=== PATIENT | female | born 1950 | race Caucasian/White ===

== ENCOUNTER 2016-06-08 05:48 | Emergency (ER) | payer MEDICAID ==
[2016-06-08 05:54] VITALS: PULSE 75; RESP 18; TEMP 98.2
[2016-06-08] MEDS ORDERED: predniSONE 50 MG TAB PO STA (06:03)
[2016-06-08] MEDS ORDERED: KETOROLAC 60 MG/2 ML VIAL IM STA (06:03)
--- NOTE | 2016-06-08 06:10 | ED ---
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 Patient also has pain over the anterior aspect of her wrist over the median nerve. Patient denies any injury to the wrist or hand. Patient has not noticed any redness to the area. Patient states she's been or abrasions. Patient thinks her fingers seem a little swollen or at least they feel swollen because they feel tingly. Patient states she does do a lot of repetitive work but nothing out of the ordinary. - Related Data Home Medications Medication Instructions Recorded Confirmed Bisoprolol Fumarate [Bisoprolol 06/08/16 Fumarate] Zolpidem [Ambien] 10 mg PO HS PRN 06/08/16 06/08/16 Previous Rx's Medication Instructions Recorded predniSONE 40 mg PO DAILY #8 tab 06/08/16 Allergies Allergy/AdvReac Type Severity Reaction Status Date / Time No Known Allergies Allergy Verified 06/08/16 05:54 Review of Systems ROS Statement: Those systems with pertinent positive or pertinent negative responses have been documented in the HPI. ROS Other: All systems not noted in ROS Statement are negative. Past Medical History Past Medical History: No Reported History History of Any Multi-Drug Resistant Organisms: None Reported Past Surgical History: Orthopedic Surgery Past Psychological History: No Psychological Hx Reported Smoking Status: Current every day smoker Past Alcohol Use History: Rare Past Drug Use History: None Reported General Exam - General Exam Comments Initial Comments: GENERAL Patient is well-developed and well-nourished. Patient is in mild distress. EYES Patient's pupils are equal and round. Extraocular motion is intact SKIN Unremarkable NEURO The patient is alert and oriented 3 PYSCH Patient has normal interpersonal interactions. MUSCULOSKELETAL Flexing the fingers causes her some discomfort in the palm and wrist area. Tapping over the anterior wrist causes significant pain. Patient still has sensation intact. No erythema is noted no wounds are noted and no swelling is noted Limitations: no limitations Course Vital Signs 03/11/17 05:51 Temperature 98.2 F Pulse Rate 75 Respiratory 18 Rate O2 Sat by Pulse 97 Oximetry Disposition Clinical Impression: Carpal tunnel syndrome Disposition: HOME SELF-CARE Condition: Good Additional Instructions: Patient should follow-up with orthopedics if the symptoms persist. If symptoms change or worsen she should come back to the emergency department. Once the prednisone is gone patient should use Motrin when necessary for symptoms. Patient should also by wrist brace to mobilize the hand. Prescriptions: predniSONE 40 mg PO DAILY #8 tab Referrals: Cirilo Lehman MD [Primary Care Provider] - 1-2 days Time of Disposition: 06:08
== END 2016-06-08 06:17 | disposition home or self-care (01) ==
LOC: EC 05:48
DX: G56.02 Carpal tunnel syndrome, left upper limb (principal); F17.200 Nicotine dependence, unspecified, uncomplicated; Z79.899 Other long term (current) drug therapy
CPT/HCPCS: 99283; 96372; J1885; J7512

== ENCOUNTER → 2016-08-07 | Outpatient (CLI) | payer MEDICAID ==
--- NOTE | 2016-08-07 16:01 | XR ---
EXAMINATION TYPE: XR shoulder complete BILAT DATE OF EXAM: 08/07/2016 3:46 PM COMPARISON: NONE HISTORY: 65-year-old male bilateral shoulder pain TECHNIQUE: 3 views each side FINDINGS: The bilateral AC joints are symmetric and intact. There is degenerative spurring along the inferior humeral head on both sides compatible with underlyi ng osteoarthrosis, left greater than right. There may be subtle calcification along the superior humeral head articular surface measuring 5 mm on the left. This could represent some calcification along the articular cartilage. No acute fracture o r dislocation. IMPRESSION: 1. Left greater than right glenohumeral joint osteoarthrosis. 2. Suspect subtle calcification along the superior articular surface of the left humeral head. Findin gs can be seen in the setting of CPPD and subclinical gout. Clinically correlate. 3. No acute osseous abnormality seen.
--- NOTE | 2016-08-07 16:15 | XR ---
EXAMINATION TYPE: XR wrist complete BILATERAL DATE OF EXAM: 08/07/2016 3:46 PM COMPARISON: NONE HISTORY: 65 year-old female bilateral wrist pain TECHNIQUE: 4 views each side FINDINGS: There is some soft tissue swelling overlying the bilateral ulnar styloid processes. There appears to be widening at the right scapholunate interval. Borderline increase in distance of t he right scapholunate interval at 2 mm. There is mild to moderate osteoarthritic change at the bilateral first CMC and triscaphe joints. No acute fracture, subluxation, or dislocation. IMPRESSION: 1. Some soft tissue swelling overlying the ulnar styloid processes on both sides could reflect ECU te ndinopathy or injury to the underlying TFCC or the ECU subsheath. 2. Osteoarthritic changes at the base of the thumbs. 3. Findings suggest age indeterminate scapholunate lunate ligament injury on the right. The scapholun ate interval on the left is borderline widened.
== END | disposition home or self-care (01) ==
LOC: RADXRMAIN 15:17
PROVIDERS: ATTEND Nurse Practitioner
DX: M19.012 Primary osteoarthritis, left shoulder (principal); M19.011 Primary osteoarthritis, right shoulder; M18.0 Bilateral primary osteoarthritis of first carpometacarpal joints; M79.89 Other specified soft tissue disorders

== ENCOUNTER 2016-10-25 08:23 | Emergency (ER) | payer MEDICAID, MEDICARE ==
[2016-10-25 08:28] VITALS: TEMP 97.9
[2016-10-25] MEDS ORDERED: HYDROcodone/APAP 5-325MG 1 EACH TAB PO STA (09:12)
--- NOTE | 2016-10-25 09:16 | ED ---
General Adult HPI - General Chief complaint: Extremity Problem,Nontraumatic Stated complaint: Lower Body Pain Time Seen by Provider: 10/25/16 08:40 Source: patient, RN notes reviewed Mode of arrival: wheelchair Limitations: no limitations - History of Present Illness Initial comments: Patient's a 66-year-old female who presents emergency room today with chief complaint of increased joint pain. She does admit that she's been experiencing joint pain over the last 3 months and the family doctor for this. States recently started on Celebrex is 2 days ago. States that the pain has increased since starting this medication. Patient does admit that it is in her joints. She states from her feet all the way up to her neck. States worse with movements. Denies any other complaints or symptoms. States she's been also using Tylenol extra strength with little relief. Patient denies any recent fever , chills, shortness of breath, chest pain, back pain, abdominal pain, nausea or vomiting, numbness or tingling, dysuria or hematuria, constipation or diarrhea, headaches or visual changes, or any other complaints. - Related Data Home Medications Medication Instructions Recorded Confirmed Zolpidem [Ambien] 10 mg PO HS PRN 06/08/16 06/08/16 Bisoprolol-Hctz 10-6.25 mg [Ziac 1 tab PO DAILY 10/25/16 10/25/16 10-6.25] Celecoxib [CeleBREX] 200 mg PO DAILY 10/25/16 10/25/16 Previous Rx's Medication Instructions Recorded Hydrocodone/Acetaminophen [[place] 1 each PO Q6HR PRN #20 tab 10/25/16 5-325] Naproxen [Naprosyn] 250 mg PO BID #30 tab 10/25/16 Allergies Allergy/AdvReac Type Severity Reaction Status Date / Time No Known Allergies Allergy Verified 10/25/16 09:11 Review of Systems ROS Statement: Those systems with pertinent positive or pertinent negative responses have been documented in the HPI. ROS Other: All systems not noted in ROS Statement are negative. Past Medical History Past Medical History: No Reported History History of Any Multi-Drug Resistant Organisms: None Reported Past Surgical History: Orthopedic Surgery Past Psychological History: No Psychological Hx Reported Smoking Status: Current every day smoker Past Alcohol Use History: Rare Past Drug Use History: None Reported General Exam - General Exam Comments Initial Comments: General: The patient is awake and alert, in no distress, and does not appear acutely ill. Eye: Pupils are equal, round and reactive to light, extra-ocular movements are intact. No nystagmus. There is normal conjunctiva bilaterally. No signs of icterus. Ears, nose, mouth and throat: There are moist mucous membranes and no oral lesions. Neck: The neck is supple, there is no tenderness or JVD. Cardiovascular: There is a regular rate and rhythm. No murmur, rub or gallop is appreciated. Respiratory: Lungs are clear to auscultation, respirations are non-labored, breath sounds are equal. No wheezes, stridor, rales, or rhonchi. Musculoskeletal: Normal ROM, no tenderness. Strength 5/5. Sensation intact. Pulses equal bilaterally 2+. Neurological: A&O x 3. CN II-XII intact, There are no obvious motor or sensory deficits. Coordination appears grossly intact. Speech is normal. Skin: Skin is warm and dry and no rashes or lesions are noted. Psychiatric: Cooperative, appropriate mood & affect, normal judgment. Limitations: no limitations Course Vital Signs 10/25/16 08:26 Temperature 97.9 F Pulse Rate 115 H Respiratory 18 Rate Blood Pressure 143/72 O2 Sat by Pulse 97 Oximetry Medical Decision Making - Medical Decision Making Celebrex medication reviewed and does show 7% chance of arthralgia. Was discussed patient that this may be because of increased right pain over the last 2 days. Advised patient to hold this medication. Will be provided a prescription for naproxen. Also given a short [place] for pain. Advised return to the family doctor return here to the emergency room symptoms increase or worsen or for any other concerns. Disposition Clinical Impression: Arthralgia Disposition: HOME SELF-CARE Condition: Good Instructions: Arthralgia (ED) Additional Instructions: Please use medication as discussed. Please follow-up with family doctor in the next 2 days of symptoms have not improved. Please return to emergency room if the symptoms increase or worsen or for any other concerns. Prescriptions: Hydrocodone/Acetaminophen [[place] 5-325] 1 each PO Q6HR PRN #20 tab PRN Reason: Pain Naproxen [Naprosyn] 250 mg PO BID #30 tab Referrals: Idris Zimmerman MD [Primary Care Provider] - 1-2 days Time of Disposition: 09:14
[2016-10-25 09:41] VITALS: BP 138/76; PULSE 92; RESP 17
== END 2016-10-25 09:40 | disposition home or self-care (01) ==
LOC: EC 08:23
DX: M25.571 Pain in right ankle and joints of right foot (principal); M25.572 Pain in left ankle and joints of left foot; M54.2 Cervicalgia; M25.50 Pain in unspecified joint; F17.200 Nicotine dependence, unspecified, uncomplicated; Z79.1 Long term (current) use of non-steroidal anti-inflammatories (NSAID); Z79.899 Other long term (current) drug therapy
CPT/HCPCS: 99283

== ENCOUNTER → 2017-10-20 | Outpatient (CLI) | payer MEDICARE ==
[2017-10-20 14:18] LABS: Basophils % (A) 0 %; Eosinophils # (A) 0.1 k/uL (0-0.7); Eosinophils % (A) 1 %; HCT 42.3 % (34.0-46.0); HGB 13.9 gm/dL (11.4-16.0); Lymphocytes # (A) 1.9 k/uL (1.0-4.8); Lymphocytes % (A) 24 %; MCH 30.9 pg (25.0-35.0); MCHC 32.8 g/dL (31.0-37.0); MCV 94.3 fL (80.0-100.0); Monocytes # (A) 0.3 k/uL (0-1.0); Monocytes % (A) 4 %; Neutrophils # (A) 5.5 k/uL (1.3-7.7); Neutrophils % (A) 70 %; Platelet Count 361 k/uL (150-450); RBC 4.49 m/uL (3.80-5.40); RDW 13.8 % (11.5-15.5); WBC 7.9 k/uL (3.8-10.6)
[2017-10-20 14:33] LABS: ALT 31 U/L (9-52); AST 18 U/L (14-36); Albumin 4.4 g/dL (3.5-5.0); Alkaline Phosphatase 86 U/L (38-126); Anion Gap 8 mmol/L; Blood Urea Nitrogen 14 mg/dL (7-17); Calcium 9.8 mg/dL (8.4-10.2); Carbon Dioxide 23 mmol/L (22-30); Chloride 110 mmol/L (98-107); Cholesterol 246 mg/dL (<200); Glucose 91 mg/dL (74-99); HDL Cholesterol 61 mg/dL (40-60); LDL Cholesterol,Calculated 143 mg/dL (0-99); Potassium 4.4 mmol/L (3.5-5.1); Sodium 141 mmol/L (137-145); Total Bilirubin 0.6 mg/dL (0.2-1.3); Total Protein 7.3 g/dL (6.3-8.2); Triglycerides 209 mg/dL (<150)
== END | disposition home or self-care (01) ==
LOC: LABWHC1 13:19
PROVIDERS: ATTEND Family Medicine
DX: Z00.00 Encounter for general adult medical examination without abnormal findings (principal); E55.9 Vitamin D deficiency, unspecified
CPT/HCPCS: 36415; 80053; 80061; 82306; 84443; 85025

== ENCOUNTER 2018-01-08 10:40 | Day surgery (SDC) | payer MEDICARE ==
[2018-01-05 15:27] VITALS: BMI 30.1
[~2018-01-08 10:40] MED LIST: LACTATED RINGERS 1,000 ML IV SCH
[2018-01-08 11:17] VITALS: RESP 18; TEMP 98.2
[2018-01-08] MEDS ORDERED: PROPOFOL 10 MG/ML 20 ML VIAL IV ONE (11:29)
[2018-01-08] MEDS ORDERED: LIDOCAINE 1% INJ 10MG/ML (20 ML MDV) ONE (11:29)
[2018-01-08] MEDS ORDERED: LIDOCAINE 1% 20 ML VIAL (10MG/ML) FOR IV START INTRADERMA ONE (11:29)
--- NOTE | 2018-01-08 11:52 | P.OP ---
Date of Procedure: 01/08/18 Preoperative Diagnosis: Positive Cologuard test Postoperative Diagnosis: Normal Colon Anesthesia: MAC Surgeon: Josef Milligan Pathology: none sent Condition: stable Disposition: same day Description of Procedure: Patient was brought to the Endo suite placed in the left lateral decubitus position underwent sedation per department of anesthesia she timeout performed correct patient correct procedure correct site was verified rectal exam was performed no abnormalities were noted the scope was passed to the rectum to the cecum with ease was then slowly withdrawn make sure to visualize all hayden of the colon on the way out. There is no abnormalities seen. Patient tolerated procedure well no apparent complications
[2018-01-08 12:13] VITALS: BP 115/78; PULSE 78
== END 2018-01-08 12:30 | disposition home or self-care (01) ==
LOC: ORWHC2ENDO 10:40
PROVIDERS: ATTEND Student in an Organized Health Care Education/Training Program
DX: R19.5 Other fecal abnormalities (principal); I10 Essential (primary) hypertension; M72.2 Plantar fascial fibromatosis; M06.9 Rheumatoid arthritis, unspecified; Z79.899 Other long term (current) drug therapy; F17.210 Nicotine dependence, cigarettes, uncomplicated
CPT/HCPCS: 45378; J2001; J2704

== ENCOUNTER → 2018-05-05 | Outpatient (CLI) | payer MEDICARE ==
--- NOTE | 2018-05-05 10:01 | XR ---
EXAMINATION TYPE: XR facial bones complete DATE OF EXAM: 05/05/2018 HISTORY: Pain trauma TECHNIQUE: Three views of the facial bones are submitted. FINDINGS: No evidence for displaced or depressed facial bone fracture. No air-fluid levels within th e sinuses. Soft tissues are radiographically intact. IMPRESSION: No evidence for displaced or depressed facial bone fracture.
== END | disposition home or self-care (01) ==
LOC: RADXRMAIN 09:05
PROVIDERS: ATTEND Family Medicine
DX: H93.8X1 Other specified disorders of right ear (principal)
CPT/HCPCS: 70150

== ENCOUNTER → 2018-05-19 | Outpatient (CLI) | payer MEDICARE ==
[2018-05-19 16:14] LABS: Blood Urea Nitrogen 13 mg/dL (7-17)
--- NOTE | 2018-05-20 09:36 | CT ---
"EXAMINATION TYPE: CT soft tissue neck w con DATE OF EXAM: 05/19/2018 COMPARISON: None HISTORY: right sided neck swelling CT DLP: 343 mGycm CONTRAST: Patient injected with 100 mL of Isovue 300. TECHNIQUE: Axial images at 3 mm thick sections. Reconstructed images in the coronal plane and sagitt al plane are reviewed. FINDINGS: Limited CT sections are obtained the lung apices. The lung apices appear clear. CT neck: The torus tubarius and fossa of Rosenmuller are normal. Extraction Machine Operator spaces are normal. Para nasal sinuses and mastoid air cells are clear. There is a 1.5 x 1.9 cm hyperdense area within the lateral anterior parotid gland may be a an abnorma l lymph node. This has some central lower density. Bilateral parotid glands otherwise appear unremarkable.. Submandibular glands, are normal. Paraphar yngeal spaces are normal. No suspicious adenopathy is evident. Couple small submental lymph nodes ar e present. Jugulodigastric lymph nodes are within normal limits for size. Shotty posterior triangle o f right. The hypopharynx appears within normal limits. Vocal cord level appear symmetrical. There is a small hypodensity within the right lobe thyroid measuring 0.4 cm. Subglottic airway appear s normal. There is a grade 1 spondylolisthesis of C4 anteriorly on C5. Vertebral body alignment is straightened . Some degenerative disc changes are present C6-7. Small amount of posterior vertebral body spurring is present at this level. IMPRESSIONS: 1. 1.5 x 1.9 cm hyperdense mass within the right parotid gland. Abnormal lymph node or mass should be considered. Additional workup is recommended. A Yellow level critical message alert has been initiated for Brandt Bray MD via the [employer] 36 0 | Critical Results System on 05/20/2018 9:33 AM. This message alert has been sent to Brandt Bray MD via the preferences provided by the clinician for the receipt of Radiology Critical Findings. [facility] ID [id number]."
== END ==
LOC: RADCTMAIN 15:30
PROVIDERS: ATTEND Otolaryngology
DX: K11.8 Other diseases of salivary glands (principal)
CPT/HCPCS: 82565; 84520; 70491; 36415; Q9967

== ENCOUNTER → 2018-06-08 | Outpatient (CLI) | payer MEDICARE ==
--- NOTE | 2018-06-08 11:27 | US ---
EXAMINATION TYPE: US thyroid st tissue head/neck DATE OF EXAM: 06/08/2018 COMPARISON: CT neck May 19, 2018 CLINICAL HISTORY: E04.1 Thyroid Nodule. Right thyroid nodule GLAND SIZE: Right Lobe: 4.7 x 1.9 x 1.7 cm Overall Parenchyma: homogenous Left Lobe: 4.3 x 1.8 x 1.7 cm Overall Parenchyma: homogeneous Isthmus Thickness: 0.4 cm NODULES RIGHT: # of nodules measured on right: 3 1. 0.5 X 0.5 x 0.6 cm mixed nodule at the upper pole with well-defined margins; . This nodule is w ider than tall and shows no intranodular vascularity. Prior size: no prior 2. 0.7 X 0.6 x 0.6 cm mixed nodule at the mid pole with poorly defined margins; . This nodule is wi lindsay than tall and shows intranodular vascularity. Prior size: no prior 3. 1.2 X 0.7 x 0.9 cm hypoechoic solid nodule at the lateral/lower pole with well-defined margins; T his nodule is taller than wideand shows intranodular vascularity. Prior size: no prior LEFT: # of nodules measured on left: 0 ISTHMUS: # of nodules measured in the isthmus: 0 Bilateral neck scanned, no evidence of lymphadenopathy. There is homogeneous normal size thyroid with few small scattered nodules. IMPRESSION: As above, dominant 1.2 cm left lateral nodule is total points 7 (hypoechoic 2, taller than wide 3, so lid 2) and is thus TR 5, ultrasound guided FNA is thus advised.
== END ==
LOC: RADUSWWP 10:51
PROVIDERS: ATTEND Otolaryngology
DX: E04.1 Nontoxic single thyroid nodule (principal)
CPT/HCPCS: 76536

== ENCOUNTER 2018-07-09 09:17 | Day surgery (SDC) | payer MEDICARE ==
[2018-07-09 09:46] VITALS: RESP 16; TEMP 98
[2018-07-09 11:32] VITALS: BP 168/81; PULSE 96
--- NOTE | 2018-07-09 14:53 | US ---
EXAMINATION TYPE: US FNA thyroid first lesion DATE OF EXAM: 07/09/2018 COMPARISON: Thyroid ultrasound 06/08/2017 HISTORY: Thyroid nodule, E04.1 Maximal barrier technique was utilized. Ultrasound using sterile technique. The skin overlying the ri ght-sided thyroid nodule was localized with ultrasound and the overlying skin prepped and draped. Lid ocaine used for local anesthesia. 5 passes with a 25-gauge needle were made into the nodule under ult rasound guidance. Aspirate specimen submitted to cytology. Following the procedure hemostasis achieve d. No immediate complication IMPRESSION: Status post ultrasound-guided fine-needle aspiration of thyroid nodule, pathology pending .
== END 2018-07-09 11:25 | disposition home or self-care (01) ==
LOC: RADPROMAIN 09:17
PROVIDERS: ATTEND Otolaryngology
DX: E04.1 Nontoxic single thyroid nodule (principal)
CPT/HCPCS: 10005; 88173; 88305

== ENCOUNTER → 2019-01-13 | Outpatient (CLI) | payer MEDICARE ==
--- NOTE | 2019-01-13 16:34 | US ---
EXAMINATION TYPE: US thyroid st tissue head/neck DATE OF EXAM: 01/13/2019 COMPARISON: NONE CLINICAL HISTORY: E04.1 THYROID NODULE. follow up on nodules, rt parotid swelling for years GLAND SIZE: Right Lobe: 4.6 x 1.3 x 2.2 cm Overall Parenchyma: heterogenous Left Lobe: 4.2 x 1.5 x 1.9 cm Overall Parenchyma: heterogeneous Isthmus Thickness: 0.6 cm NODULES RIGHT: # of nodules measured on right: 2 1. 0.8 X 0.8 x 0.5 cm cystic nodule at the lower pole with well-defined margins. This nodule is wi lindsay than tall and shows no intranodular vascularity. Prior size: 1.1 x 0.7 x 0.9 cm - previously biopsied 2. 0.7 X 0.7 x 0.7 cm hypoechoic solid nodule at the mid pole with well-defined margins. This nodul e is wider than tall and shows intranodular vascularity. Prior size: 0.7 x 0.6 x 0.6 cm LEFT: # of nodules measured on left: 0 ISTHMUS: # of nodules measured in the isthmus: 0 Bilateral neck scanned, no evidence of lymphadenopathy. Rt parotid palpable appears to be complex lesion with vascularity = 1.7cm IMPRESSION: 1. Subcentimeter nodules within the thyroid. 2. Parotid gland appears abnormal with vascular structure present. Recommend contrast CT of the neck for additional evaluation.
== END | disposition home or self-care (01) ==
LOC: RADUSWWP 12:11
PROVIDERS: ATTEND Otolaryngology
DX: E04.2 Nontoxic multinodular goiter (principal); K11.9 Disease of salivary gland, unspecified
CPT/HCPCS: 76536

== ENCOUNTER → 2019-10-22 | Outpatient (CLI) | payer MEDICARE ==
--- NOTE | 2019-10-22 12:24 | US ---
EXAMINATION TYPE: US thyroid st tissue head/neck DATE OF EXAM: 10/22/2019 COMPARISON: 01/13/2019 CLINICAL HISTORY: 69-year-old female E04.1 THYROID NODULE, K11.8 RT PAROTID NODULE. TECHNIQUE: Multiple sonographic images of the thyroid gland are obtained. FINDINGS: GLAND SIZE: Right Lobe: 4.1 x 1.6 x 1.6 cm Overall Parenchyma: homogenous Left Lobe: 5.4 x 1.5 x 1.7 cm Overall Parenchyma: homogeneous Isthmus Thickness: 0.3 cm NODULES RIGHT: # of nodules measured on right: 3 1. 0.9 X 0.7 x 0.8 cm benign cyst at the lower pole. Prior size: 0.8 x 0.5 x 0.8 cm 2. 0.7 X 0.6 x 0.6 cm isoechoic solid nodule at the posterior mid pole with well-defined margins; . This nodule is wider than tall and shows intranodular vascularity. Prior size: 0.7 x 0.6 x 0.7 cm 3. 0.6 X 0.4 x 0.4 cm colloid cyst at the upper pole. Prior size: not imaged LEFT: # of nodules measured on left: 2 1. 0.8 X 0.5 x 0.7 cm hypoechoic solid nodule at the lower pole with well-defined margins; . This nodule is wider than tall and shows intranodular vascularity. Prior size: not imaged 2. 0.5 X 0.3 x 0.6 cyst at the midpole. Prior size: not imaged ISTHMUS: # of nodules measured in the isthmus: 0 Bilateral neck scanned, no evidence of lymphadenopathy. Right parotid hypoechoic round solid nodule with internal flow measures 2.0 x 1.8 x 1.9 cm. IMPRESSION: 1. Multinodular thyroid gland. There is an 8 mm solid nodule not previously seen/evaluated on the lef t for which follow-up is recommended. The 7 mm solid nodule at the right midpole remains unchanged. 2. Circumscribed, round solid mass within the right parotid gland measures 2.0 cm. Salivary gland ronaldo plasm is in the differential. !"
== END | disposition home or self-care (01) ==
LOC: RADUSWWP 10:51
PROVIDERS: ATTEND Otolaryngology
DX: E04.2 Nontoxic multinodular goiter (principal); K11.8 Other diseases of salivary glands
CPT/HCPCS: 76536

== ENCOUNTER 2020-02-01 06:37 | Emergency (ER) | payer MEDICARE ==
[2020-02-01 06:47] VITALS: RESP 18; TEMP 98.1
[2020-02-01] MEDS ORDERED: SODIUM CHLORIDE 0.9% 1,000 ML IV STA (07:08)
[2020-02-01] MEDS ORDERED: KETOROLAC 15 MG/ML 1 ML VIAL IVP STA (07:09)
--- NOTE | 2020-02-01 07:15 | ED ---
Chest Pain HPI - General Chief Complaint: Chest Pain Stated Complaint: Lt Side Abdominal/Back Pain Time Seen by Provider: 02/01/20 07:01 Source: patient, RN notes reviewed, old records reviewed Mode of arrival: ambulatory Limitations: no limitations - History of Present Illness Initial Comments: 61-year-old female presents emergency department today for evaluation with complaints of left-sided rib discomfort with taking a deep breath for the past 2 days. She is a former smoker. She reports that she recently quit smoking and smoke approximately half pack a day. Patient states that she is having worsening pain with any certain movements and deep inspiration.. She reports she took Motrin today and did have improvement. Patient denies any cough, or hemoptysis. Patient denies any lower leg swelling. Patient has no fall or trauma. - Related Data Home Medications Medication Instructions Recorded Confirmed Zolpidem [Ambien] 10 mg PO HS 06/08/16 02/01/20 Albuterol Sulfate [Proair Hfa] 1 - 2 puff INHALATION Q6HR PRN 01/05/18 02/01/20 Folic Acid 1 mg PO DAILY 02/01/20 02/01/20 Ibuprofen [Motrin] 800 mg PO Q8H PRN 02/01/20 02/01/20 Irbesartan 300 mg PO DAILY 02/01/20 02/01/20 amLODIPine [Norvasc] 5 mg PO DAILY 02/01/20 02/01/20 metHOTREXate sodium [Methotrexate] 15 mg PO FR 02/01/20 02/01/20 Previous Rx's Medication Instructions Recorded Cyclobenzaprine [Flexeril] 5 mg PO TID #12 tablet 02/01/20 Allergies Allergy/AdvReac Type Severity Reaction Status Date / Time No Known Allergies Allergy Verified 02/01/20 08:27 Review of Systems ROS Statement: Those systems with pertinent positive or pertinent negative responses have been documented in the HPI. ROS Other: All systems not noted in ROS Statement are negative. EKG Findings - EKG Comments: EKG Findings:: EKG performed at 654 shows sinus rhythm nonspecific ST and normality. Abnormal EKG. Vegetarian of 82 bpm. Intervals 144 ms. QS ration is 8 units she will seconds. QT QTc is 366/427 ms. Past Medical History Past Medical History: COPD, Hypertension, Rheumatoid Arthritis (RA) History of Any Multi-Drug Resistant Organisms: None Reported Past Surgical History: Orthopedic Surgery Additional Past Surgical History / Comment(s): Plantar fascitis bilateral Past Anesthesia/Blood Transfusion Reactions: No Reported Reaction Past Psychological History: No Psychological Hx Reported Smoking Status: Former smoker Past Alcohol Use History: Rare Past Drug Use History: None Reported - Past Family History Mother Family Medical History: No Reported History Father Family Medical History: Cancer General Exam - General Exam Comments Initial Comments: 61-year-old female. Alert and oriented 3. No distress. Limitations: no limitations General appearance: alert, in no apparent distress Head exam: Present: atraumatic, normocephalic, normal inspection Eye exam: Present: normal appearance, PERRL, EOMI. Absent: scleral icterus, conjunctival injection, periorbital swelling ENT exam: Present: normal exam, mucous membranes moist, other Neck exam: Present: normal inspection. Absent: tenderness, meningismus, lymphadenopathy Respiratory exam: Present: normal lung sounds bilaterally, other (Patient has tenderness over the left ribs 9 and 10. No rash. Lungs are clear to auscultation bilaterally). Absent: respiratory distress, wheezes, rales, rhonchi, stridor Cardiovascular Exam: Present: regular rate, normal rhythm, normal heart sounds. Absent: systolic murmur, diastolic murmur, rubs, gallop, clicks GI/Abdominal exam: Present: soft, normal bowel sounds. Absent: distended, tenderness, guarding, rebound, rigid Extremities exam: Present: normal inspection, full ROM, normal capillary refill. Absent: tenderness, pedal edema, joint swelling, calf tenderness Back exam: Present: normal inspection Neurological exam: Present: alert, oriented X3, CN II-XII intact Psychiatric exam: Present: normal affect, normal mood Skin exam: Present: warm, dry, intact, normal color. Absent: rash Course Vital Signs 02/01/20 02/01/20 06:45 08:23 Temperature 98.1 F Pulse Rate 92 75 Respiratory 18 18 Rate Blood Pressure 135/81 127/73 O2 Sat by Pulse 98 96 Oximetry Chest Pain MDM - MDM 69-year-old female presents emergency department today for eval for concern for left-sided rib pain for the past 2 days. She reports it's painful taking a deep breath and inspiration. Patient has no a rash over the skin. Is tender to palpation over the left ribs 9 and 10. Patient labwork was reviewed and unremarkable. Normal EKG and normal troponin and d-dimer. Chest x-ray was reviewed. Showing Mild hyperinflation may relate to of inspiration underlying emphysema. Strandy bibasilar atelectasis otherwise no acute process seen. Discussed patient's pain seems muscular skeletal. Discussed that she can take a temperature medicine. 2. Discussed return parameters. Disposition Clinical Impression: Rib pain on left side Disposition: HOME SELF-CARE Condition: Good Instructions (If sedation given, give patient instructions): Costochondritis (ED) Additional Instructions: Take the antiinflammatory medicine as prescribed. Follow-up with primary care doctor. Return to ED if any alarming signs or symptoms occur. Prescriptions: Cyclobenzaprine [Flexeril] 5 mg PO TID #12 tablet Is patient prescribed a controlled substance at d/c from ED?: No Referrals: Idris Zimmerman MD [Primary Care Provider] - 1-2 days Time of Disposition: 08:44
[2020-02-01 07:42] LABS: Basophils % (A) 0 %; Eosinophils # (A) 0.4 k/uL (0-0.7); Eosinophils % (A) 4 %; HGB 13.1 gm/dL (11.4-16.0); Lymphocytes # (A) 1.8 k/uL (1.0-4.8); Lymphocytes % (A) 21 %; MCHC 31.2 g/dL (31.0-37.0); MCV 99.3 fL (80.0-100.0); Macrocytosis Slight; Mean Platelet Volume 7.4; Monocytes # (A) 0.3 k/uL (0-1.0); Monocytes % (A) 4 %; Neutrophils # (A) 5.7 k/uL (1.3-7.7); Neutrophils % (A) 69 %; Platelet Count 360 k/uL (150-450); RBC 4.23 m/uL (3.80-5.40); RDW 14.7 % (11.5-15.5); WBC 8.3 k/uL (3.8-10.6)
[2020-02-01 07:47] LABS: ALT 18 U/L (4-34); AST 18 U/L (14-36); African American GFR (CKD) >90 (>60 ml/min/1.73 sqM); Albumin 4.1 g/dL (3.5-5.0); Alkaline Phosphatase 99 U/L (38-126); Anion Gap 10 mmol/L; Blood Urea Nitrogen 17 mg/dL (7-17); Calcium 9.8 mg/dL (8.4-10.2); Carbon Dioxide 21 mmol/L (22-30); Chloride 110 mmol/L (98-107); Glucose 104 mg/dL (74-99); Magnesium 1.8 mg/dL (1.6-2.3); Non-African American GFR(CKD) 90 (>60 ml/min/1.73 sqM); Potassium 4.1 mmol/L (3.5-5.1); Sodium 141 mmol/L (137-145); Total Bilirubin 0.9 mg/dL (0.2-1.3); Total Protein 7.1 g/dL (6.3-8.2)
[2020-02-01 07:54] LABS: D-Dimer 0.52 mg/L FEU (<0.60); INR 0.9 (<1.2); Partial Thromboplastin Time 23.8 sec (22.0-30.0); Prothrombin Time 9.3 sec (9.0-12.0)
--- NOTE | 2020-02-01 08:01 | XR ---
EXAMINATION TYPE: XR chest 2V DATE OF EXAM: 02/01/2020 COMPARISON: None HISTORY: 69-year-old female with left-sided chest pain TECHNIQUE: PA and lateral views FINDINGS: Heart normal size. Aorta and pulmonary vasculature within normal limits. Strandy atelectasis in the l ower lungs. Mild hyperinflation. No consolidation or pleural effusion. IMPRESSION: Mild hyperinflation may relate to depth of inspiration or underlying emphysema. Strandy bibasilar ate lectasis. Otherwise, no acute process seen.
[2020-02-01 08:23] VITALS: BP 127/73; PULSE 75
== END 2020-02-01 09:09 | disposition home or self-care (01) ==
LOC: EC 06:37
DX: R07.81 Pleurodynia (principal); J98.11 Atelectasis; J44.9 Chronic obstructive pulmonary disease, unspecified; I10 Essential (primary) hypertension; M06.9 Rheumatoid arthritis, unspecified; Z79.51 Long term (current) use of inhaled steroids; Z79.899 Other long term (current) drug therapy; Z87.891 Personal history of nicotine dependence
CPT/HCPCS: 36415; 93005; 85379; 80053; 83735; 84484; 85025; 85610; 85730; 71046; 99284; 96374; 96361 ×2; J1885

== ENCOUNTER → 2020-04-26 | Outpatient (CLI) | payer MEDICARE ==
--- NOTE | 2020-04-26 15:38 | US ---
EXAMINATION TYPE: US thyroid st tissue head/neck DATE OF EXAM: 04/26/2020 COMPARISON: NONE CLINICAL HISTORY: E04.1 Thyroid Nodule, K11.8 R parotid nodule. right parotid surgery Sept 2019, h/o thyroid nodules GLAND SIZE: Right Lobe: 4.1 x 1.3 x 1.6 cm Overall Parenchyma: heterogenous Left Lobe: 4.2 x 1.4 x 1.7 cm Overall Parenchyma: heterogeneous Isthmus Thickness: 0.3 cm NODULES RIGHT: # of nodules measured on right: 1 1. 1.3 X 0.8 x 1.0 cm solid or almost completely solid, hypoechoic nodule, which is wider than tall , with smooth margins, without echogenic foci. Prior size: 0.7 x 0.6 x 0.6 cm LEFT: # of nodules measured on left: 1 1. 1.0 X 0.9 x 0.5 cm solid or almost completely solid, hypoechoic nodule, which is wider than tall , with smooth margins, without echogenic foci. Prior size: 0.8 x 0.5 x 0.6 cm ISTHMUS: # of nodules measured in the isthmus: 0 Bilateral neck scanned, no evidence of lymphadenopathy. difficult thyroid to image, multiple nodules bilaterally, measured the largest per side. Imaged are a of right parotid, pt unsure if whole gland was removed or just large cyst. No abnormality seen at a sunita of right parotid. IMPRESSION: Moderately suspicious nodule right lobe thyroid, follow-up exam in one year is recommended 2017 ACR TI-RADS LEVEL: 4 *Highest TI-RADS level nodule reported
== END | disposition home or self-care (01) ==
LOC: RADUSWWP 14:14
PROVIDERS: ATTEND Otolaryngology
DX: E04.1 Nontoxic single thyroid nodule (principal); K11.8 Other diseases of salivary glands
CPT/HCPCS: 76536

== ENCOUNTER → 2020-12-07 | Outpatient (CLI) | payer MEDICARE ==
--- NOTE | 2020-12-07 10:04 | US ---
EXAMINATION TYPE: US thyroid st tissue head/neck DATE OF EXAM: 12/07/2020 COMPARISON: 04/26/2020 CLINICAL HISTORY: 70-year-old female E04.1 Thyroid Nodule. Per order, follow up thyroid nodules. TECHNIQUE: Multiple sonographic images of the thyroid gland are obtained. FINDINGS: GLAND SIZE: Right Lobe: 3.8 x 1.5 x 1.9 cm Overall Parenchyma: heterogenous Left Lobe: 4.1 x 1.9 x 1.5 cm Overall Parenchyma: heterogeneous Isthmus Thickness: 0.3 cm NODULES RIGHT: # of nodules measured on right: 2 1. 1.2 X 0.9 x 1.0 cm, mid , solid or almost completely solid, TR 4 hypoechoic nodule, which is wid er than tall, with smooth margins, without echogenic foci. Prior size: 1.3 x 0.8 x 1.0 cm 2. 0.9 X 0.7 x 0.5 cm, mid lateral, solid or almost completely solid, hypoechoic TR 4 nodule, which is wider than tall, with smooth margins, without echogenic foci. Prior size: No prior 3. 1.2 X 0.6 x 0.4 cm, mid lateral, cystic or almost completely cystic, anechoic nodule, which is w ider than tall, with smooth margins, with echogenic foci. 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 Prior size: No prior . However, review of the prior images suggests that this was present previou sly as well. LEFT: # of nodules measured on left: 1 1. 1.0 X 1.1 x 0.7 cm, lower , solid or almost completely solid, hypoechoic TR 4 nodule, which is w ider than tall, with smooth margins, without echogenic foci. Prior size: 1.0 x 0.9 x 0.5 cm ISTHMUS: # of nodules measured in the isthmus: 0 Bilateral neck scanned, superior to left thyroid lymph node seen measuring borderline enlarged at 2.3 x 0.6 x1.1 cm. IMPRESSION: 1. Multiple nodules redemonstrated. There are a few TR 4 nodules, the largest of which measures 1.2 c m on the right and 1.0 cm on the left are unchanged. 2. A 9 mm TR 4 nodule laterally in the mid right lobe appears new and should be reassessed at follow- up. 3. Borderline enlarged lymph node in the left side of the neck measuring up to 1.1 cm short axis. Thi s may be reactive/post inflammatory. Recommend clinical follow-up/surveillance. This should also be r eassessed at the follow-up thyroid ultrasound.
== END | disposition home or self-care (01) ==
LOC: RADUSWWP 07:04
PROVIDERS: ATTEND Otolaryngology
DX: E04.2 Nontoxic multinodular goiter (principal); R59.0 Localized enlarged lymph nodes
CPT/HCPCS: 76536

== ENCOUNTER → 2021-03-15 | Outpatient (CLI) | payer MEDICARE ==
[2021-03-15 19:39] LABS: Basophils # (A) 0.07 X 10*3/uL (0.00-0.10); Basophils % (A) 1.1 %; Eosinophils # (A) 0.17 X 10*3/uL (0.04-0.35); Eosinophils % (A) 2.7 %; HCT 35.9 % (37.2-46.3); HGB 12.1 g/dL (12.0-15.0); Lymphocytes # (A) 1.53 X 10*3/uL (0.90-5.00); Lymphocytes % (A) 24.4 %; MCHC 33.7 g/dL (32.0-37.0); MCV 100.8 fL (80.0-97.0); Mean Platelet Volume 10.2 fL (9.5-12.2); Monocytes # (A) 0.55 X 10*3/uL (0.20-1.00); Monocytes % (A) 8.8 %; Neutrophils # (A) 3.92 X 10*3/uL (1.80-7.70); Neutrophils % (A) 62.4 %; Platelet Count 351 X 10*3/uL (140-440); RBC 3.56 X 10*6/uL (4.10-5.20); RDW 15.7 % (11.5-14.5); WBC 6.28 X 10*3/uL (4.50-10.00)
[2021-03-15 22:53] LABS: ALT 21 U/L (8-44); AST 15 U/L (13-35); African American GFR (CKD) 106.1 (60.0-200.0); Albumin 4.1 g/dL (3.8-4.9); Albumin/Globulin Ratio 1.85 (1.60-3.17); Alkaline Phosphatase 105 U/L (41-126); BUN/Creat Ratio 20.03 Ratio (12.00-20.00); Blood Urea Nitrogen 12.6 mg/dL (9.0-27.0); Calcium 9.1 mg/dL (8.7-10.3); Carbon Dioxide 19.2 mmol/L (20.0-27.5); Chloride 109 mmol/L (96-109); Chol/HDL Ratio 3.99 Ratio; Globulin 2.2 g/dL (1.6-3.3); Glucose 92 mg/dL (70-110); LDL Cholesterol,Calculated 119.3 mg/dL (0.0-131.0); Non-African American GFR(CKD) 91.6 (60.0-200.0); Potassium 4.1 mmol/L (3.5-5.5); Sodium 143 mmol/L (135-145); Total Protein 6.3 g/dL (6.2-8.2)
== END | disposition home or self-care (01) ==
LOC: LABWHC1 13:25
PROVIDERS: ATTEND Family Medicine
DX: I10 Essential (primary) hypertension (principal); E55.9 Vitamin D deficiency, unspecified
CPT/HCPCS: 36415; 80053; 80061; 82306; 84443; 85025

== ENCOUNTER → 2021-10-18 | Outpatient (CLI) | payer MEDICARE ==
--- NOTE | 2021-10-19 13:25 | BD ---
EXAMINATION TYPE: Axial Bone Density DATE OF EXAM: 10/18/2021 COMPARISON: NONE CLINICAL HISTORY: 71 years year old Female. ICD-10 CODE: M81.0 OSTEOPOROSIS Height: 63 Weight: 180.0 FRAX RISK QUESTIONS: Alcohol (3 or more units per day): NO Family History (Parent hip fracture): NO Glucocorticoids (More than 3mos): NO History of Fracture in Adulthood: NO Secondary Osteoporosis: 1. Type 1 Diabetes: NO 2. Hyperthyroidism: NO 3. Menopause before 45: NO 4. Malnutrition: NO 5. Chronic liver disease: NO Rheumatoid Arthritis: YES Current Tobacco Use: YES RISK FACTORS HISTORY OF: Hip Fracture (Right/Left): NO Spine Fracture: NO History of Wrist Fracture: NO Surgery to Spine/Hip(right/left)/Wrist (right/left): NO Family History of Osteoporosis: NO Active: NO Diet low in dairy products/other sources of calcium: YES Postmenopausal woman: YES Take estrogen and/or progesterone medications: NO Lost more than 2 inches in height since high school: NO Frequent falls: NO Poor Health: NO Hyperparathyroidism: NO Adrenal Insufficiency: NO MEDICATIONS: Prednisone or other steroids: NO Thyroid Medications: NO Osteoporosis Medications: NO Additional Medications: METHOTREXATE, BP MEDS, FOLIC ACID, ALBUTEROL INHALER, VIT D, Additional History: EXAM MEASUREMENTS: Bone mineral densitometry was performed using the [employer] System. Bone mineral density as measured about the Lumbar spine is: ----- L1-L4(G/cm2): 1.040 T Score Values are as follows: ----- L1: -1.9 ----- L2: -2.8 ----- L3: -0.7 ----- L4: 0.8 ----- L1-L4: -1.2 Bone mineral density has: DECREASED 18.6 % since study of: 12/15/2015 Bone mineral density about the R hip (g/cm2): 0.845 Bone mineral density about the L hip (g/cm2): 0.881 T Score values are as follows: -----R Neck: -1.4 -----L Neck: -1.1 -----R Total: -.0 -----L Total: -0.9 Bone mineral density has: DECREASED 7.9 % since study of: 12/15/2015 FRAX%s: The graph provided illustrates a 11.8% chance for a major osteoporotic fx and a 1.7% chance f or the hips probability for fx in 10 years time. IMPRESSION: Osteopenia (T Score between -2.5 and -1). There is slightly increased risk of fracture and the patient may be considered for treatment. Re-Screen 2-5 years. NOTE: T-SCORE=SD OF THE YOUNG ADULT MEAN.
== END | disposition home or self-care (01) ==
LOC: RADBDWWP 11:09
PROVIDERS: ATTEND Internal Medicine Rheumatology
DX: M85.89 Other specified disorders of bone density and structure, multiple sites (principal)
CPT/HCPCS: 77080

== ENCOUNTER → 2022-03-19 | Outpatient (CLI) | payer MEDICARE ==
[2022-03-19 14:30] LABS: Basophils # (A) 0.06 X 10*3/uL (0.00-0.10); Eosinophils # (A) 0.28 X 10*3/uL (0.04-0.35); Eosinophils % (A) 4.5 %; HCT 35.5 % (37.2-46.3); Immature Grans, Automated 0.2 %; Lymphocytes # (A) 1.52 X 10*3/uL (0.90-5.00); Lymphocytes % (A) 24.3 %; MCH 34.8 pg (27.0-32.0); MCHC 33.8 g/dL (32.0-37.0); MCV 102.9 fL (80.0-97.0); Mean Platelet Volume 10.1 fL (9.5-12.2); Monocytes # (A) 0.34 X 10*3/uL (0.20-1.00); Monocytes % (A) 5.4 %; NRBC Per 100 WBC 0 /100 WBCS (0.0-0.0); Neutrophils # (A) 4.04 X 10*3/uL (1.80-7.70); Neutrophils % (A) 64.6 %; Platelet Count 450 X 10*3/uL (140-440); RBC 3.45 X 10*6/uL (4.10-5.20); WBC 6.25 X 10*3/uL (4.50-10.00)
[2022-03-19 15:11] LABS: ALT 31 U/L (8-44); AST 16 U/L (13-35); African American GFR (CKD) 98.5 (60.0-200.0); Albumin 3.6 g/dL (3.8-4.9); Albumin/Globulin Ratio 1.93 (1.60-3.17); Alkaline Phosphatase 98 U/L (41-126); BUN/Creat Ratio 14.19 Ratio (12.00-20.00); Blood Urea Nitrogen 10.2 mg/dL (9.0-27.0); Calcium 9.4 mg/dL (8.7-10.3); Carbon Dioxide 19.2 mmol/L (20.0-27.5); Chloride 114 mmol/L (96-109); Globulin 1.9 g/dL (1.6-3.3); Glucose 101 mg/dL (70-110); LDL Cholesterol,Calculated 106.7 mg/dL (0.0-131.0); Potassium 3.9 mmol/L (3.5-5.5); Sodium 142 mmol/L (135-145); Total Protein 5.5 g/dL (6.2-8.2)
== END | disposition home or self-care (01) ==
LOC: LABWHC1 09:40
PROVIDERS: ATTEND Family Medicine
DX: I10 Essential (primary) hypertension (principal); E78.5 Hyperlipidemia, unspecified; E55.9 Vitamin D deficiency, unspecified
CPT/HCPCS: 36415; 80053; 80061; 82306; 84443; 85025

== ENCOUNTER → 2022-04-04 | Outpatient (CLI) | payer MEDICARE ==
--- NOTE | 2022-04-04 10:08 | XR ---
EXAMINATION TYPE: XR chest 2V DATE OF EXAM: 04/04/2022 10:04 AM COMPARISON: Chest radiographs from 02/01/2020 TECHNIQUE: XR chest 2V Frontal and lateral views of the chest. CLINICAL INDICATION:Female, 71 years old with history of E88.09, J44.9 COPD; FINDINGS: Lungs/Pleura: There is flattening of the diaphragm with increased lucency of the lungs. No evidence o f pneumothorax, pleural effusion or focal consolidation. Pulmonary vascularity: Unremarkable. Heart/mediastinum: Cardiomediastinal silhouette is unremarkable. Musculoskeletal: No acute osseous pathology. IMPRESSION: 1. No acute cardiopulmonary disease process. 2. COPD changes.
== END | disposition home or self-care (01) ==
LOC: RADXRMAIN 09:53
PROVIDERS: ATTEND Family Medicine
DX: J44.9 Chronic obstructive pulmonary disease, unspecified (principal); E88.09 Other disorders of plasma-protein metabolism, not elsewhere classified
CPT/HCPCS: 71046

== ENCOUNTER → 2023-06-19 | Outpatient (CLI) | payer MEDICARE ==
[2023-06-19 13:17] LABS: African American GFR (CKD) 90 (>60 ml/min/1.73 sqM); Blood Urea Nitrogen 15 mg/dL (7-17); Non-African American GFR(CKD) 78 (>60 ml/min/1.73 sqM)
--- NOTE | 2023-06-20 09:34 | CT ---
EXAMINATION TYPE: CT angio neck DATE OF EXAM: 06/19/2023 HISTORY: Carotid stenosis COMPARISON: None CT DLP: 316.8 mGycm. Automated Exposure Control for Dose Reduction was Utilized. TECHNIQUE: CTA scan of the head and neck is performed with IV Contrast, patient injected with 65ml m L of Isovue 370, axial images are obtained, coronal and sagittal reformatted images are reviewed. 3D reconstructed images are created on an independent workstation and reviewed. FINDINGS: There is calcified plaque at the origin of the left subclavian artery resulting in a mild to moderate stenosis. The left common carotid and right brachiocephalic artery origins are widely patent. There is marked irregular plaque involving the right carotid bifurcation resulting in a greater than 70% severe stenosis of the origin of the right internal carotid artery. There is moderate eccentric plaque involving the origin of the left internal carotid artery resulting in a moderate to severe 60-70% stenosis. The left vertebral artery is markedly atraumatic. The right vertebral artery is dominant. In the visualized portion of the intracerebral arterial circulation, there is no sizable aneurysm sac , segmental occlusion or stenosis. Pression: 1. Greater than 70% severe right internal carotid artery stenosis. 2. Moderate to severe 67% left internal carotid artery stenosis. 3. Mild to moderate stenosis origin left subclavian artery. 4. Markedly atretic left vertebral artery. NASCET criteria was used in interpretation of this exam?
== END | disposition home or self-care (01) ==
LOC: RADCTMAIN 12:25
PROVIDERS: ATTEND Surgery
DX: I65.23 Occlusion and stenosis of bilateral carotid arteries (principal); I77.1 Stricture of artery
CPT/HCPCS: 82565; 84520; 70498; 36415; Q9967

== ENCOUNTER → 2023-10-09 | Outpatient (CLI) | payer MEDICARE ==
--- NOTE | 2023-10-10 12:56 | CA ---
Transthoracic Echo Report Name: Jenny Presley Age: 73 Gender: F : 1950 Exam Date: 10/09/2023 13:47 Exam Location: [facility] Ht (in): 62 Wt (lb): 158 Ordering Physician: Mckinley Marlow DO ([email or web address]) Attending/Referring Phys: Patent Legal Assistant Nhung nSow RDCS Procedure CPT: Indications: Z01.818 physical R94.31 Cardiac Hx: Technical Quality: Good Contrast 1: Total Dose (mL): Contrast 2: Total Dose (mL): MEASUREMENTS (Male / Female) Normal Values 2D ECHO LV Diastolic Diameter PLAX 4.1 cm 4.2 - 5.9 / 3.9 - 5.3 cm LV Systolic Diameter PLAX 3.6 cm IVS Diastolic Thickness 1.1 cm 0.6 - 1.0 / 0.6 - 0.9 cm LVPW Diastolic Thickness 1.2 cm 0.6 - 1.0 / 0.6 - 0.9 cm LV Relative Wall Thickness 0.6 RV Internal Dim ED PLAX 2.9 cm LA Systolic Diameter LX 3.2 cm 3.0 - 4.0 / 2.7 - 3.8 cm LV Diastolic Volume MOD BP 42.1 cm??? 67 - 155 / 56 - 104 cm??? LV Systolic Volume MOD BP 16.9 cm??? 22 - 58 / 19 - 49 cm??? LV Ejection Fraction MOD BP 59.8 % >= 55 % LV Cardiac Index MOD BP 1123.6 cm???/min???m??? LV Diastolic Volume MOD 4C 50.3 cm??? LV Systolic Volume MOD 4C 18.6 cm??? LV Ejection Fraction MOD 4C 62.9 % LV Cardiac Index MOD 4C 1410.7 cm???/min???m??? LV Diastolic Length 4C 7.0 cm LV Systolic Length 4C 5.9 cm LV Diastolic Volume MOD 2C 33.7 cm??? LV Systolic Volume MOD 2C 14.4 cm??? LV Ejection Fraction MOD 2C 57.3 % LV Cardiac Index MOD 2C 859.8 cm???/min???m??? LV Diastolic Length 2C 6.6 cm LV Systolic Length 2C 6.5 cm LA Volume 28.4 cm??? 18 - 58 / 22 - 52 cm??? LA Volume Index 15.8 cm???/m??? 16 - 28 cm???/m??? M-MODE Aortic Root Diameter MM 3.4 cm AV Cusp Separation MM 2.3 cm DOPPLER AV Peak Velocity 145.6 cm/s AV Peak Gradient 8.5 mmHg MV Area PHT 2.3 cm??? Mitral E Point Velocity 61.0 cm/s Mitral A Point Velocity 90.7 cm/s Mitral E to A Ratio 0.7 MV Deceleration Time 328.1 ms MV E' Velocity 10.2 cm/s Mitral E to MV E' Ratio 6.0 TR Peak Velocity 245.7 cm/s TR Peak Gradient 24.2 mmHg Right Ventricular Systolic Press 29.1 mmHg FINDINGS Left Ventricle Left ventricular ejection fraction is estimated at 55-60 %. Left ventricular cavity size normal. Mildly increased septal wall thickness. Mildly increased posterior wall thickness. Normal left ventricular wall motion. Right Ventricle Normal right ventricular size and function. Right ventricular systolic pressure within normal limits. Right Atrium Normal right atrial size. No right atrial thrombus or mass seen. Left Atrium Normal left atrial size. No left atrial thrombus or mass present. Mitral Valve Mitral valve thickened. Mild mitral annular calcification. No evidence for mitral valve prolapse. No mitral stenosis. Aortic Valve Trileaflet aortic valve. No aortic valve stenosis or regurgitation. Tricuspid Valve Structurally normal tricuspid valve. Mild tricuspid regurgitation. Pulmonic Valve Structurally normal pulmonic valve. No pulmonic regurgitation. Pericardium No pericardial effusion. No pleural effusion. Aorta Normal size aortic root and proximal ascending aorta. CONCLUSIONS Left ventricular ejection fraction 55-60% Mildly increased left ventricular wall thickness RVSP 29 No mitral stenosis Mild mitral calcification Mild tricuspid regurgitation Previewed by: Dr. Mckinley Marlow DO (Electronically Signed) Final Date: 10 October 2023 12:55
== END | disposition home or self-care (01) ==
LOC: RADECHMAIN 13:00
PROVIDERS: ATTEND Internal Medicine
DX: Z01.810 Encounter for preprocedural cardiovascular examination (principal); R94.31 Abnormal electrocardiogram [ECG] [EKG]; I08.1 Rheumatic disorders of both mitral and tricuspid valves
CPT/HCPCS: 93306

== ENCOUNTER 2024-04-23 05:52 | Inpatient (IN) | payer MEDICARE ==
[~2024-04-23 05:52] MED LIST changes: +ALPRAZolam 0.25 MG TAB PO PRN; +ALPRAZolam 0.5 MG TAB PO PRN; +ASPIRIN 81 MG PO PRN; +CLOPIDOGREL 75 MG TAB PO PRN; -LACTATED RINGERS 1,000 ML IV SCH; +NITROGLYCERIN SL TABS 0.4 MG TAB SUBLINGUAL PRN; +PRASUGREL 10 MG TAB PO PRN; +TICAGRELOR 90 MG TAB PO PRN
[2024-04-23] MEDS ORDERED: ceFAZolin 2 GM in SODIUM CHLORIDE 0.9% 500 ML 500 ML IRRIGATION PRN (06:00)
[2024-04-23] MEDS: SODIUM CHLORIDE 0.9% 1,000 ML IV ONE (06:20)
[2024-04-23 06:48] LABS: Anisocytosis Slight; Basophils % (A) 1 %; Eosinophils # (A) 0.2 k/uL (0-0.7); Eosinophils % (A) 5 %; HCT 32.1 % (34.0-46.0); HGB 10.6 gm/dL (11.4-16.0); Hypochromasia Slight; Lymphocytes # (A) 0.9 k/uL (1.0-4.8); Lymphocytes % (A) 21 %; MCH 33.1 pg (25.0-35.0); MCV 100.3 fL (80.0-100.0); Macrocytosis Slight; Mean Platelet Volume 7.2; Monocytes # (A) 0.4 k/uL (0-1.0); Monocytes % (A) 9 %; Neutrophils # (A) 2.6 k/uL (1.3-7.7); Neutrophils % (A) 62 %; Platelet Count 262 k/uL (150-450); RDW 17.3 % (11.5-15.5); WBC 4.2 k/uL (3.8-10.6)
[2024-04-23 07:04] LABS: African American GFR (CKD) 72 (>60 ml/min/1.73 sqM); Anion Gap 9 mmol/L; Blood Urea Nitrogen 14 mg/dL (7-17); Carbon Dioxide 18 mmol/L (22-30); Chloride 114 mmol/L (98-107); Glucose 95 mg/dL (74-99); Non-African American GFR(CKD) 62 (>60 ml/min/1.73 sqM); Potassium 3.6 mmol/L (3.5-5.1); Sodium 141 mmol/L (137-145)
--- NOTE | 2024-04-23 07:20 | P.HPIHPCON ---
History of Present Illness H&P Date: 04/23/24 Patient is a 73-year-old female with right internal carotid artery stenosis high-grade, she has had previous right neck surgery and due to this after full discussion of risks and benefits we decided going forward with a transcarotid artery revascularization. Consent for Procedure: I have explained the operation/procedure to the patient, including the risks, benefits, side effects, alternative therapies (including not receiving the proposed treatment or service), the likelihood of the patient achieving his/her goals, and potential recuperation problems for the procedure/sedation/analgesia, as well as any blood products, if indicated. I also explained to the patient the risks, benefits and side effects of the alternatives, as well as the risks related to not receiving the proposed procedure, care, treatment, or services. Past Medical History Past Medical History: COPD, GERD/Reflux, Hyperlipidemia, Hypertension, Rheumatoid Arthritis (RA) Additional Past Medical History / Comment(s): fatigue and sob with exertion History of Any Multi-Drug Resistant Organisms: None Reported Past Surgical History: Orthopedic Surgery Additional Past Surgical History / Comment(s): Plantar fascitis bilateral, colonoscopy. parotid gland removed. Past Anesthesia/Blood Transfusion Reactions: No Reported Reaction Smoking Status: Current every day smoker - Past Family History Mother Family Medical History: Coronary Artery Disease (CAD) Father Family Medical History: Cancer Additional Family Medical History / Comment(s): mesothelioma Medications and Allergies Home Medications Medication Instructions Recorded Confirmed Type Zolpidem [Ambien] 10 mg PO HS 06/08/16 04/23/24 History Albuterol Sulfate [Proair Hfa] 1 - 2 puff INHALATION Q6HR PRN 01/05/18 04/23/24 History Folic Acid 1 mg PO DAILY 02/01/20 04/23/24 History Ibuprofen [Motrin] 800 mg PO Q8H PRN 02/01/20 04/23/24 History Irbesartan 300 mg PO DAILY 02/01/20 04/23/24 History amLODIPine [Norvasc] 5 mg PO DAILY 02/01/20 04/23/24 History metHOTREXate sodium [Methotrexate] 25 mg PO FR 02/01/20 04/23/24 History Aspirin EC [Ecotrin Low Dose] 81 mg PO DAILY 04/21/24 04/23/24 History Atorvastatin [Lipitor] 40 mg PO HS 04/21/24 04/23/24 History Clopidogrel [Plavix] 75 mg PO DAILY 04/21/24 04/23/24 History DULoxetine HCL [Cymbalta] 30 mg PO BID 04/21/24 04/23/24 History Unk Vitamin D3 1 tab PO DAILY 04/21/24 04/23/24 History Allergies Allergy/AdvReac Type Severity Reaction Status Date / Time No Known Allergies Allergy Verified 04/23/24 06:11 Surgical - Exam Vital Signs Temp Pulse Resp BP Pulse Ox 98.6 F 73 16 126/56 98 04/23/24 06:18 04/23/24 06:18 04/23/24 06:18 04/23/24 06:18 04/23/24 06:18 General is a pleasant cooperative female no acute distress. H&T is normocephalic, atraumatic, right neck surgical scar. Heart appears regular. Lungs are clear. Abdomen is soft. Cranial nerves II through XII grossly intact Results - Labs 04/23/24 06:30 04/23/24 06:30 Abnormal Lab Results - Last 24 Hours (Table) 04/23/24 04/23/24 Range/Units 06:30 06:30 RBC 3.20 L (3.80-5.40) m/uL Hgb 10.6 L (11.4-16.0) gm/dL Hct 32.1 L (34.0-46.0) % MCV 100.3 H (80.0-100.0) fL RDW 17.3 H (11.5-15.5) % Lymphocytes # 0.9 L (1.0-4.8) k/uL Chloride 114 H (98-107) mmol/L Carbon Dioxide 18 L (22-30) mmol/L Diabetes panel 04/23/24 Range/Units 06:30 Sodium 141 (137-145) mmol/L Potassium 3.6 (3.5-5.1) mmol/L Chloride 114 H (98-107) mmol/L Carbon Dioxide 18 L (22-30) mmol/L BUN 14 (7-17) mg/dL Creatinine 0.93 (0.52-1.04) mg/dL Glucose 95 (74-99) mg/dL Calcium 9.0 (8.4-10.2) mg/dL Calcium panel 04/23/24 Range/Units 06:30 Calcium 9.0 (8.4-10.2) mg/dL Pituitary panel 04/23/24 Range/Units 06:30 Sodium 141 (137-145) mmol/L Potassium 3.6 (3.5-5.1) mmol/L Chloride 114 H (98-107) mmol/L Carbon Dioxide 18 L (22-30) mmol/L BUN 14 (7-17) mg/dL Creatinine 0.93 (0.52-1.04) mg/dL Glucose 95 (74-99) mg/dL Calcium 9.0 (8.4-10.2) mg/dL Adrenal panel 04/23/24 Range/Units 06:30 Sodium 141 (137-145) mmol/L Potassium 3.6 (3.5-5.1) mmol/L Chloride 114 H (98-107) mmol/L Carbon Dioxide 18 L (22-30) mmol/L BUN 14 (7-17) mg/dL Creatinine 0.93 (0.52-1.04) mg/dL Glucose 95 (74-99) mg/dL Calcium 9.0 (8.4-10.2) mg/dL Assessment and Plan Assessment: High-grade right internal carotid artery stenosis Previous right neck surgery Plan: Patient is here today for right TCAR. Through shared decision making after discussion of carotid endarterectomy, transfemoral and transcarotid artery revascularization we decided upon this risks and benefits discussed patient continue aspirin, Plavix and statin. She takes her Plavix in the evening. Questions were answered. Plan to proceed.
[2024-04-23] MEDS ORDERED: VASOPRESSIN 20 UNIT/ML 1 ML VIAL ONE (07:28)
[2024-04-23] MEDS ORDERED: HEPARIN SODIUM,PORCINE 10,000 UNIT/ML 1 ML VIAL ONE (07:28)
[2024-04-23] MEDS ORDERED: ePHEDrine 50 MG/ML 1 ML VIAL ONE (07:28)
[2024-04-23] MEDS ORDERED: GLYCOPYRROLATE 0.2 MG/ML 2 ML VIAL ONE (07:28)
[2024-04-23] MEDS ORDERED: fentaNYL (PF) 50 MCG/ML 2 ML AMP ONE (07:28)
[2024-04-23] MEDS ORDERED: PHENYLEPHRINE 10 MG/ML VIAL ONE (07:28)
[2024-04-23] MEDS ORDERED: DEXMEDETOMIDINE/0.9% NACL(PMX) 400 MCG/100 ML IV ONE (07:28)
[2024-04-23] MEDS ORDERED: ONDANSETRON 4 MG/2 ML VIAL ONE (07:28)
[2024-04-23] MEDS: LIDOCAINE 1% INJ 10MG/ML (20 ML MDV) SQ ONE (08:10)
[2024-04-23] MEDS: HEPARIN SODIUM,PORCINE 10,000 UNIT in SODIUM CHLORIDE 0.9% 1,000 ML IRRIGATION ONE (08:11)
[2024-04-23] MEDS: ceFAZolin 2 GM in SODIUM CHLORIDE 0.9% 500 ML 500 ML IRRIGATION ONE (08:11)
[2024-04-23] MEDS ORDERED: RX INFO: IV CONTRAST WAS GIVEN 1 EACH MISC MISCELLANE PRN (09:00)
[2024-04-23] MEDS: IV FLUID CONTINUATION 1,000 ML IV ONE ×2 (09:16→09:30)
[2024-04-23] MEDS ORDERED: ATROPINE SULFATE 0.1 MG/ML 10ML SYRINGE IV PRN (09:21)
[2024-04-23] MEDS ORDERED: MAG HYDROX/AL HYDROX/SIMETH 30 ML CUP PO PRN (09:21)
--- NOTE | 2024-04-23 09:21 | P.OP ---
Date of Procedure: 04/23/24 Description of Procedure: Preoperative diagnosis: Asymptomatic right internal carotid artery stenosis, previous neck surgery Postoperative diagnosis: Same Procedure: Right transcarotid artery revascularization with stenting. Right common femoral vein central venous catheter placement under ultrasound guidance Surgeon: Rebecca Oneill DO Recycling Program Manager: Clarisa Thomason Anesthesia: Conscious sedation Complications: None Condition: Stable Flow reversal time: 6 minutes Lesion length: 10 mm Indication for procedure: Patient is a 73-year-old female with previous right neck surgery who presents for asymptomatic right high-grade carotid stenosis. Previous risks and benefits were discussed. She seemed understood and was willing to proceed Operative narrative:the patient was brought to the [employer] and laid in a supine position. The area of the neck and groins were prepped and draped in usual sterile fashion after appropriate anesthetic was performed per the anesthesiologist. A timeout was performed in normal fashion and antibiotics were administered prior to incision. Utilizing ultrasound the right common carotid artery was located and a transverse incision was created overlying this area after proper anesthetization. Dissection was carried between the sternocleidomastoid musculature down to the carotid sheath. The sheath was then incised and the common carotid artery was located and dissected free in a circumferential manner and controlled with umbilical tape. Once controlled, attention was placed down to the common femoral vein and utilizing ultrasound the vein was cannulated and the 8-Cymraes sheath was placed in normal fashion. Attention was then placed back to the carotid artery and the patient was administered heparin and followed with ACTs and redosed as needed for ACT above 250. A pursestring suture was then placed at the common carotid artery with 5-0 Prolene and utilizing a micropuncture needle the common carotid artery was accessed and wire was placed followed by a 4-Cymraes sheath. Carotid angiogram was then obtained demonstrating significant stenosis in the internal carotid artery. Stiff wire was then placed followed by the 8 Cymraes [address] sheath. Flow reversal was then established with the enroute [employer] system after patient's blood pressure was increased to above 160, heart rate above 60 and ACT above 250. 014 wire was then placed across the lesion followed by a 5.5 x 30 mm Núñez balloon and balloon angioplasty was performed followed by an 8 x 30 mm S ilkroad stent. Postdilatation was not performed and final angiogram was obtained demonstrating improvement of the stenosis. All guidewires and catheters were removed and the sheath was removed and the arteriotomy was secured with the previously placed pursestring suture. Hemostasis was assured with Gelfoam and thrombin. The area was irrigated and closed. The platysma was closed with 3-0 Vicryl. The skin was closed with running 4-0 Monocryl in subcuticular fashionThe femoral sheath was also removed and pressure was held for hemostasis. The patient all procedure well and was moving all extremities and following commands. The patient was then sent to PACU for recovery.
--- NOTE | 2024-04-23 09:34 | IR ---
EXAMINATION TYPE: IR angio carotid cerv RT DATE OF EXAM: 04/23/2024 CLINICAL HISTORY: Right neck pain. TECHNIQUE: Fluoroscopy. COMPARISON: None. FINDINGS: Fluoroscopic guidance was provided during carotid angiogram procedure performed by Dr. Kwabena cason. A total of 120 seconds of fluoroscopic time was utilized during the procedure and 56 spot images was acquired. TOTAL DAP = 0.782 Gy x cm2. IMPRESSION: As Above. [facility], , 04/23/2024 9:32 AM
[2024-04-23] MEDS: PHENYLEPHRINE 40 MG in SODIUM CHLORIDE 0.9% 250 ML IV ONE (09:40)
[2024-04-23 10:27] LABS: Glucose,Whole Blood 132 mg/dL (70-110)
[2024-04-23] MEDS: ceFAZolin 1,000 MG in SODIUM CHLORIDE 0.9% IRRIG BTL 250 ML IRRIGATION ONE (10:55)
[2024-04-23] MEDS: SODIUM CHLORIDE 0.9% 1,000 ML in EMPTY BAG 1 BAG IV ONE (10:55)
[2024-04-23] MEDS: SODIUM CHLORIDE 0.9% 1,000 ML IV SCH (11:14)
[2024-04-23] MEDS: SODIUM CHLORIDE 0.9% 500 ML 500 ML IV ONE (11:14)
[2024-04-23] MEDS: PSEUDOEPHEDRINE 30 MG TAB PO SCH (11:56)
[2024-04-23] MEDS: VASOPRESSIN 20 UNIT in SODIUM CHLORIDE 0.9% 50 ML IV SCH (12:19)
--- NOTE | 2024-04-23 13:01 | XR ---
EXAMINATION TYPE: XR chest 1V DATE OF EXAM: 04/23/2024 COMPARISON: Chest x-ray April 04, 2022 CLINICAL INDICATION: Female, 73 years old with history of Post-TCAR; TECHNIQUE: Single frontal view of the chest is obtained. FINDINGS: There is persistent medial right basilar triangular-shaped opacity There is no new suspicio us focal air space opacity, pleural effusion, or pneumothorax seen. The cardiac silhouette size nancy ins within normal limits. The osseous structures are demineralized. IMPRESSION: Chronic changes without new acute pulmonary process. [facility], , 04/23/2024 12:58 PM
--- NOTE | 2024-04-23 13:13 | P.CNPUL ---
History of Present Illness Consult date: 04/23/24 Requesting physician: Rebecca Oneill Reason for consult: other Chief complaint: ICU management. History of present illness: Pulmonary consult dated April 23, 2024. 73-year-old female postop day #0, status post right sided trans carotid arterial revascularization (TCAR). The patient is seen in the intensive care unit, room #2 64. She is on room air. She is getting Luis Carlos-Synephrine at 2 mcg/kg/min. She is also getting saline at [address] Oneill would like a blood pressure to be right around 140 mmHg systolic, and for that reason, we will add some vasopressin at 0.03 units/min. They did have some issues with lower blood pressures, in the operating room. The patient has a history of COPD, GERD, hyperlipidemia, hypertension, and rheumatoid arthritis. The procedure is being done for high-grade right-sided carotid artery stenosis. Current labs are good a white count 4.2, hemoglobin 10.6, macro 32.1, platelet count 262,000. Sodium 141, potassium 3.6, chlorides 114, CO2 18, BUN 14, creatinine 0.93. Glucose is 132. Calcium is 9. Chest x-ray is unremarkable. Review of Systems REVIEW OF SYSTEMS: Currently, no specific complaints. CONSTITUTIONAL: [Negative.] NEUROLOGIC: [ Negative.] HEENT: [ Negative.] CARDIAC: [Negative.] PULMONARY: [Negative.] GI: [Negative.] : [Negative.] RHEUMATOLOGIC: [ Negative.] IMMUNOLOGIC: [ Negative.] ENDOCRINE: [Negative. ] DERMATOLOGIC: [Negative.] Past Medical History Past Medical History: COPD, GERD/Reflux, Hyperlipidemia, Hypertension, Rheumatoid Arthritis (RA) Additional Past Medical History / Comment(s): fatigue and sob with exertion History of Any Multi-Drug Resistant Organisms: None Reported Past Surgical History: Orthopedic Surgery Additional Past Surgical History / Comment(s): Plantar fascitis bilateral, colonoscopy. parotid gland removed. Past Anesthesia/Blood Transfusion Reactions: No Reported Reaction Smoking Status: Current every day smoker - Past Family History Mother Family Medical History: Coronary Artery Disease (CAD) Father Family Medical History: Cancer Additional Family Medical History / Comment(s): mesothelioma Medications and Allergies Home Medications Medication Instructions Recorded Confirmed Type Zolpidem [Ambien] 10 mg PO HS 06/08/16 04/23/24 History Albuterol Sulfate [Proair Hfa] 1 - 2 puff INHALATION Q6HR PRN 01/05/18 04/23/24 History Folic Acid 1 mg PO DAILY 02/01/20 04/23/24 History Ibuprofen [Motrin] 800 mg PO Q8H PRN 02/01/20 04/23/24 History Irbesartan 300 mg PO DAILY 02/01/20 04/23/24 History amLODIPine [Norvasc] 5 mg PO DAILY 02/01/20 04/23/24 History metHOTREXate sodium [Methotrexate] 25 mg PO FR 02/01/20 04/23/24 History Aspirin EC [Ecotrin Low Dose] 81 mg PO DAILY 04/21/24 04/23/24 History Atorvastatin [Lipitor] 40 mg PO HS 04/21/24 04/23/24 History Clopidogrel [Plavix] 75 mg PO DAILY 04/21/24 04/23/24 History DULoxetine HCL [Cymbalta] 30 mg PO BID 04/21/24 04/23/24 History Unk Vitamin D3 1 tab PO DAILY 04/21/24 04/23/24 History Allergies Allergy/AdvReac Type Severity Reaction Status Date / Time No Known Allergies Allergy Verified 04/23/24 06:11 Physical Exam Osteopathic Statement: *. No significant issues noted on an osteopathic structural exam other than those noted in the History and Physical/Consult. Vitals: Vital Signs Temp Pulse Pulse Resp BP BP BP 04/23/24 12:00 74 18 105/46 04/23/24 11:45 64 14 04/23/24 11:30 64 16 04/23/24 11:15 69 14 04/23/24 11:00 65 22 94/49 04/23/24 10:45 63 14 04/23/24 10:30 64 16 94/49 04/23/24 10:21 74 25 H 04/23/24 10:01 69 16 114/55 04/23/24 09:46 73 14 131/60 04/23/24 09:31 75 16 118/54 04/23/24 09:16 97.3 F L 18 112/49 04/23/24 06:18 98.6 F 73 16 139/61 126/56 Pulse Ox 04/23/24 12:00 99 04/23/24 11:45 98 04/23/24 11:30 98 04/23/24 11:15 95 04/23/24 11:00 98 04/23/24 10:45 98 04/23/24 10:30 95 04/23/24 10:21 95 04/23/24 10:01 96 04/23/24 09:46 92 L 04/23/24 09:31 92 L 04/23/24 09:16 96 04/23/24 06:18 98 Intake and Output 04/22/24 04/23/24 04/23/24 22:59 06:59 14:59 Intake Total 913.926 Output Total 0 Balance 913.926 Intake: IV 802 Sodium Chloride 0.9% 1, 100 000 ml @ 100 mls/hr IV . Q10H [facility] Rx#:[id number] Sodium Chloride 0.9% 500 500 ml 500 ml @ 999 mls/hr IV .Q31M [facility] Rx#:[id number] Intake, IV Titration 111.926 Amount Phenylephrine 40 mg In 110.931 Sodium Chloride 0.9% 250 ml @ 0.5 MCG/KG/MIN 12. 668 mls/hr IV .Q20H4M [facility] Rx#:[id number] Vasopressin 20 unit In 0.995 Sodium Chloride 0.9% 50 ml @ 0.03 UNITS/MIN 4.59 mls/hr IV .Q11H7M [facility] Rx# :[id number] Output: Urine 0 Other: Weight 66.5 kg ABP, PAP, CO, CI - Last 8 Hours Arterial Blood Pressure 103/47 Arterial Blood Pressure 119/47 Arterial Blood Pressure 133/54 Arterial Blood Pressure 101/43 Arterial Blood Pressure 121/53 Arterial Blood Pressure 114/43 Arterial Blood Pressure 114/49 No acute distress, oriented 3. Currently on room air. HEENT examination is grossly unremarkable. Mucous membranes are moist. No oral lesions. Neck supple. Full range of motion. No adenopathy thyromegaly or neck vein distention. Bandage over the right neck area. Cardiovascular examination reveals regular rhythm rate. S1-S2 normal. No S3 or S4. No discernible murmur noted. Lungs reveal clear breath sounds. Breath sounds are equal bilaterally. No adventitious lung sounds including wheezes rhonchi or crackles. Abdomen soft bowel sounds are heard. No masses or tenderness. Extremities are intact. No cyanosis clubbing or edema. Skin is without rash or lesion. Neurologic examination is brief but nonfocal. Results - Laboratory Findings CBC and BMP: 04/23/24 06:30 04/23/24 06:30 Abnormal lab findings: Abnormal Labs 04/23/24 04/23/24 04/23/24 06:30 06:30 10:26 RBC 3.20 L Hgb 10.6 L Hct 32.1 L MCV 100.3 H RDW 17.3 H Lymphocytes # 0.9 L Chloride 114 H Carbon Dioxide 18 L POC Glucose (mg/dL) 132 H - Diagnostic Findings Chest x-ray: image reviewed Assessment and Plan Assessment: Postop day #0, status post right transcarotid artery revascularization (TCAR) for high-grade right carotid artery stenosis. Routine ICU management, for blood pressure support. History of COPD. History of gastroesophageal reflux disease. History of hyperlipidemia. History of hypertension. History of rheumatoid arthritis. Plan: Plan dated April 23, 2024. The patient's target blood pressure is 140 mmHg systolic. Currently, the patient is on Luis Carlos-Synephrine at 2 mcg/kg/min, but blood pressures in the 120 range. The patient is also getting saline at 100 cc an hour. The patient is on room air. We will start vasopressin at 0.03 units/min. Additional recommendations and suggestions are forthcoming. We will continue to follow. Prognosis is guarded. We did speak to Dr. Oneill about this patient. Time with Patient: Greater than 30
[2024-04-23] MEDS: HYDROcodone/APAP 5-325MG 1 EACH TAB PO PRN (13:54)
[2024-04-23] MEDS: ALBUTEROL NEBULIZED 2.5 MG/3 ML INHALATION SCH (15:15)
[2024-04-23] MEDS: ATORVASTATIN 40 MG TAB PO SCH (21:46)
[2024-04-23] MEDS: DULoxetine HCL 30 MG CAPSULE.DR PO SCH (21:46)
[2024-04-23] MEDS: ZOLPIDEM 5 MG TAB PO SCH (21:46)
--- NOTE | 2024-04-23 23:33 | CONS ---
CONSULTATION REASON FOR CONSULTATION: Advice regarding COPD and other medical issues, requested by Vascular Surgery. HISTORY OF PRESENT ILLNESS: This is a 73-year-old woman with a past medical history of multiple medical problems including COPD, hyperlipidemia, hypertension, being followed by Dr. Zimmerman in the outpatient setting, underwent right transcarotid arterial revascularization for high- grade right carotid stenosis. Intraoperatively, the patient had hypotension. The patient is started on neosynephrine. The patient is also added on vasopressin to maintain blood pressure of 140. There is no history of any fever, rigors, nausea, headache, loss of consciousness, or seizures at this time. The chest x-ray showed only chronic changes. The labs are reviewed. PAST MEDICAL HISTORY: Reviewed include COPD. Rest of the history and rest of the chart is also reviewed. HOME MEDICATIONS: Reviewed include methotrexate. Dose and rest of medications noted. ALLERGIES: None. FAMILY HISTORY: History of Crohn disease in the family, mesothelioma. SOCIAL HISTORY: Smoking. REVIEW OF SYSTEMS: Fourteen-point review of systems is negative except as mentioned earlier. PHYSICAL EXAMINATION: VITAL SIGNS: Pulse 74, blood pressure 105/43, respirations 18. HEENT: Conjunctivae normal. NECK: Status post surgery. No tenderness. CARDIOVASCULAR: S1, S2. RESPIRATIONS: Breath sounds diminished at the bases. ABDOMEN: Soft. LEGS: No edema. NERVOUS SYSTEM: Nonfocal. LABORATORY DATA: WBC 4.2, hemoglobin 10.6. ASSESSMENT: 1. Status post right transcarotid arterial revascularization for high-grade carotid artery stenosis. 2. Chronic obstructive pulmonary disease. 3. Gastroesophageal reflux disease. 4. Hyperlipidemia. 5. Hypertension. 6. Rheumatoid arthritis. RECOMMENDATIONS: Recommend to continue current management and continue symptomatic treatment. Monitor blood pressure closely. Hold off the blood pressure medications, antiplatelet agents. Resume the home medications. We will follow the patient closely with bronchodilators. MMODL / IJN: [id number] /
[2024-04-24 04:42] LABS: African American GFR (CKD) >90 (>60 ml/min/1.73 sqM); Anion Gap 4 mmol/L; Blood Urea Nitrogen 8 mg/dL (7-17); Calcium 7.8 mg/dL (8.4-10.2); Carbon Dioxide 15 mmol/L (22-30); Chloride 116 mmol/L (98-107); Glucose 112 mg/dL (74-99); Non-African American GFR(CKD) 88 (>60 ml/min/1.73 sqM); Potassium 3.4 mmol/L (3.5-5.1); Sodium 135 mmol/L (137-145)
[2024-04-24] MEDS ORDERED: Potassium Replacement Protocol 1 EACH MISC MISCELLANE PRN ×2 (04:49→09:39)
[2024-04-24 05:01] LABS: Anisocytosis Slight; Basophils % (A) 1 %; Eosinophils # (A) 0.1 k/uL (0-0.7); Eosinophils % (A) 2 %; HCT 25.1 % (34.0-46.0); Lymphocytes # (A) 1.2 k/uL (1.0-4.8); Lymphocytes % (A) 24 %; MCH 32.3 pg (25.0-35.0); MCHC 31.9 g/dL (31.0-37.0); MCV 101.2 fL (80.0-100.0); Macrocytosis Moderate; Mean Platelet Volume 7.9; Monocytes # (A) 0.4 k/uL (0-1.0); Monocytes % (A) 8 %; Neutrophils # (A) 2.9 k/uL (1.3-7.7); Neutrophils % (A) 61 %; Platelet Count 205 k/uL (150-450); RBC 2.48 m/uL (3.80-5.40); RDW 17.8 % (11.5-15.5); WBC 4.8 k/uL (3.8-10.6)
[2024-04-24] MEDS: POTASSIUM CHLORIDE ER 20 MEQ TAB.ER PO SCH ×2 (06:04→09:50)
[2024-04-24] MEDS: CLOPIDOGREL 75 MG TAB PO SCH (08:46)
[2024-04-24] MEDS: ASPIRIN 81 MG PO SCH (08:46)
[2024-04-24] MEDS: FOLIC ACID 1 MG TAB PO SCH (08:46)
[2024-04-24] MEDS ORDERED: PHENYLEPHRINE 40 MG in SODIUM CHLORIDE 0.9% 250 ML IV SCH (10:45)
--- NOTE | 2024-04-24 10:49 | P.PN ---
Subjective Progress Note Date: 04/24/24 Principal diagnosis: ICU management. Pulmonary consult dated April 23, 2024. 73-year-old female postop day #0, status post right sided trans carotid arterial revascularization (TCAR). The patient is seen in the intensive care unit, room #2 64. She is on room air. She is getting Luis Carlos-Synephrine at 2 mcg/kg/min. She is also getting saline at [address] Oneill would like a blood pressure to be right around 140 mmHg systolic, and for that reason, we will add some vasopressin at 0.03 units/min. They did have some issues with lower blood pressures, in the operating room. The patient has a history of COPD, GERD, hyperlipidemia, hypertension, and rheumatoid arthritis. The procedure is being done for high-grade right-sided carotid artery stenosis. Current labs are good a white count 4.2, hemoglobin 10.6, macro 32.1, platelet count 262,000. Sodium 141, potassium 3.6, chlorides 114, CO2 18, BUN 14, creatinine 0.93. Glucose is 132. Calcium is 9. Chest x-ray is unremarkable. Progress note dated April 24, 2024. 73-year-old female who is postoperative day #1, status post right transcarotid arterial revascularization procedure. The patient remains on room air. The patient is getting saline at 100 cc an hour. In addition, to maintain a blood pressure, that is adequate according to vascular surgery, the patient is on vasopressin at 0.04 units/min, and Luis Carlos-Synephrine at 0.2 mcg/kg/min. The arterial line is nonfunctioning, and can be discontinued. Current labs include a white count of 4.8, hemoglobin 8, hematocrit 25.1, and a platelet count of 205,000. Sodium 135, potassium 3.2, chlorides 116, CO2 15, BUN 8, and creatinine 0.67. Glucose is 112. Calcium is 7.8. Objective - Vital Signs Vital signs: Vital Signs Temp 98 F 04/24/24 09:15 Pulse 65 04/24/24 10:00 Resp 10 L 04/24/24 10:00 BP 98/82 04/24/24 10:00 Pulse Ox 97 04/24/24 10:00 FiO2 Intake & Output 04/23/24 04/24/24 04/24/24 18:59 06:59 18:59 Intake Total 2255.323 1379.289 492.807 Output Total 700 1300 Balance 1555.323 79.289 492.807 Weight 72.9 kg Intake: IV 1402 1200 400 Sodium Chloride 0.9% 1, 700 1200 400 000 ml @ 100 mls/hr IV . Q10H [facility] Rx#:[id number] Sodium Chloride 0.9% 500 500 ml 500 ml @ 999 mls/hr IV .Q31M [facility] Rx#:[id number] Intake, IV Titration 353.323 179.289 92.807 Amount Phenylephrine 40 mg In 327.644 128.289 41.807 Sodium Chloride 0.9% 250 ml @ 0.5 MCG/KG/MIN 12. 668 mls/hr IV .Q20H4M [facility] Rx#:[id number] Vasopressin 20 unit In 25.679 51 51.00 Sodium Chloride 0.9% 50 ml @ 0.03 UNITS/MIN 4.59 mls/hr IV .Q11H7M [facility] Rx# :[id number] Oral 500 Output: Urine 700 1300 Other: # Voids 1 ABP, PAP, CO, CI - Last Documented Arterial Blood Pressure 88/88 - Exam No acute distress, oriented 3. Currently on room air. HEENT examination is grossly unremarkable. Mucous membranes are moist. No oral lesions. Neck supple. Full range of motion. No adenopathy thyromegaly or neck vein distention. Cardiovascular examination reveals regular rhythm rate. S1-S2 normal. No S3 or S4. No discernible murmur noted. Lungs reveal clear breath sounds. Breath sounds are equal bilaterally. No adventitious lung sounds including wheezes rhonchi or crackles. Abdomen soft bowel sounds are heard. No masses or tenderness. Extremities are intact. No cyanosis clubbing or edema. Skin is without rash or lesion. Neurologic examination is brief but nonfocal. - Labs CBC & Chem 7: 04/24/24 04:12 04/24/24 08:55 Labs: Abnormal Lab Results - Last 24 Hours (Table) 04/24/24 04/24/24 04/24/24 Range/Units 04:12 04:12 08:55 RBC 2.48 L (3.80-5.40) m/uL Hgb 8.0 L D (11.4-16.0) gm/dL Hct 25.1 L (34.0-46.0) % MCV 101.2 H (80.0-100.0) fL RDW 17.8 H (11.5-15.5) % Sodium 135 L (137-145) mmol/L Potassium 3.4 L 3.2 L (3.5-5.1) mmol/L Chloride 116 H (98-107) mmol/L Carbon Dioxide 15 L (22-30) mmol/L Glucose 112 H (74-99) mg/dL Calcium 7.8 L (8.4-10.2) mg/dL Assessment and Plan Assessment: Postop day #1, status post right transcarotid artery revascularization (TCAR) for high-grade right carotid artery stenosis. Routine ICU management, for blood pressure support. History of COPD. History of gastroesophageal reflux disease. History of hyperlipidemia. History of hypertension. History of rheumatoid arthritis. Plan: Plan dated April 23, 2024. The patient's target blood pressure is 140 mmHg systolic. Currently, the patient is on Luis Carlos-Synephrine at 2 mcg/kg/min, but blood pressures in the 120 range. The patient is also getting saline at 100 cc an hour. The patient is on room air. We will start vasopressin at 0.03 units/min. Additional recommendations and suggestions are forthcoming. We will continue to follow. Prognosis is guarded. We did speak to Dr. Oneill about this patient. Plan dated April 24, 2024. The patient's target blood pressure systolic is 140 mmHg. That is currently being achieved using vasopressin at 0.04 units/min, Luis Carlos-Synephrine at 0.2 mcg/kg/min. The arterial line is nonfunctioning, and I have asked the nurse to remove it. The patient is on room air. All labs, x-rays, and medications are reviewed. We will continue to follow the patient, make recommendations. At this time, the patient needs to stay in the intensive care unit. Time with Patient: Greater than 30
[2024-04-24] MEDS ORDERED: Magnesium Replacement Protocol 1 EACH MISC MISCELLANE PRN (11:02)
[2024-04-24] MEDS: PHENYLEPHRINE 40 MG in SODIUM CHLORIDE 0.9% 250 ML IV SCH (11:05)
[2024-04-24] MEDS: 0.9% NACL WITH KCL 40 MEQ/L 1,000 ML IV SCH (11:36)
--- NOTE | 2024-04-24 14:57 | P.PN ---
Subjective Progress Note Date: 04/24/24 Status post transcarotid arterial revascularization right internal carotid artery. Objective - Vital Signs Vital signs: Vital Signs Temp 97.8 F 04/24/24 12:00 Pulse 56 L 04/24/24 14:00 Resp 18 04/24/24 14:00 BP 131/69 04/24/24 14:00 Pulse Ox 96 04/24/24 14:00 FiO2 Intake & Output 04/23/24 04/24/24 04/24/24 18:59 06:59 18:59 Intake Total 2255.323 1379.289 818.476 Output Total 700 1300 Balance 1555.323 79.289 818.476 Weight 72.9 kg Intake: IV 1402 1200 700 Sodium Chloride 0.9% 1, 700 1200 700 000 ml @ 100 mls/hr IV . Q10H [facility] Rx#:[id number] Sodium Chloride 0.9% 500 500 ml 500 ml @ 999 mls/hr IV .Q31M [facility] Rx#:[id number] Intake, IV Titration 353.323 179.289 118.476 Amount Phenylephrine 40 mg In 327.644 128.289 42.060 Sodium Chloride 0.9% 250 ml @ 0.5 MCG/KG/MIN 12. 668 mls/hr IV .Q20H4M [facility] Rx#:[id number] Phenylephrine 40 mg In 25.416 Sodium Chloride 0.9% 250 ml @ 0.5 MCG/KG/MIN 13. 887 mls/hr IV .[id number] [facility] Rx#:[id number] Vasopressin 20 unit In 25.679 51 51.00 Sodium Chloride 0.9% 50 ml @ 0.03 UNITS/MIN 4.59 mls/hr IV .Q11H7M [facility] Rx# :[id number] Oral 500 Output: Urine 700 1300 Other: # Voids 1 ABP, PAP, CO, CI - Last Documented Arterial Blood Pressure 88/88 - Exam Patient is awake alert, cooperative no apparent distress. Cranial nerves II through XII are grossly intact. No neurologic deficit is noted. Equal motor strength is noted in the upper lower extremities. The patient does remain on 2 vasopressors for support of blood pressure. Otherwise the patient is doing well. - Labs CBC & Chem 7: 04/24/24 04:12 04/24/24 08:55 Labs: Abnormal Lab Results - Last 24 Hours (Table) 04/24/24 04/24/24 04/24/24 Range/Units 04:12 04:12 08:55 RBC 2.48 L (3.80-5.40) m/uL Hgb 8.0 L D (11.4-16.0) gm/dL Hct 25.1 L (34.0-46.0) % MCV 101.2 H (80.0-100.0) fL RDW 17.8 H (11.5-15.5) % Sodium 135 L (137-145) mmol/L Potassium 3.4 L 3.2 L (3.5-5.1) mmol/L Chloride 116 H (98-107) mmol/L Carbon Dioxide 15 L (22-30) mmol/L Glucose 112 H (74-99) mg/dL Calcium 7.8 L (8.4-10.2) mg/dL Assessment and Plan Assessment: 1: Status post right internal carotid artery balloon and stenting via the TCAR approach. 2: Continued need for vasopressor support. Plan: 1: Continue supportive care and wean vasoactive's as tolerated. Time with Patient: Less than 30
[2024-04-24] MEDS: SODIUM CHLORIDE 0.9% 1,000 ML IV SCH (18:55)
[2024-04-25 05:43] LABS: Anisocytosis Slight; Basophils % (A) 0 %; Eosinophils # (A) 0.2 k/uL (0-0.7); Eosinophils % (A) 5 %; HCT 26.4 % (34.0-46.0); HGB 8.6 gm/dL (11.4-16.0); Hypochromasia Slight; Lymphocytes # (A) 1.4 k/uL (1.0-4.8); Lymphocytes % (A) 32 %; MCH 32.8 pg (25.0-35.0); MCHC 32.5 g/dL (31.0-37.0); MCV 100.9 fL (80.0-100.0); Macrocytosis Slight; Monocytes # (A) 0.3 k/uL (0-1.0); Monocytes % (A) 7 %; Neutrophils # (A) 2.4 k/uL (1.3-7.7); Neutrophils % (A) 52 %; Platelet Count 178 k/uL (150-450); RBC 2.62 m/uL (3.80-5.40); RDW 17.1 % (11.5-15.5); WBC 4.5 k/uL (3.8-10.6)
[2024-04-25 05:53] LABS: ALT 26 U/L (4-34); AST 23 U/L (14-36); African American GFR (CKD) >90 (>60 ml/min/1.73 sqM); Albumin 2.9 g/dL (3.5-5.0); Alkaline Phosphatase 119 U/L (38-126); Anion Gap 6 mmol/L; Blood Urea Nitrogen 5 mg/dL (7-17); Calcium 8.4 mg/dL (8.4-10.2); Carbon Dioxide 15 mmol/L (22-30); Chloride 115 mmol/L (98-107); Glucose 92 mg/dL (74-99); Magnesium 1.8 mg/dL (1.6-2.3); Non-African American GFR(CKD) 90 (>60 ml/min/1.73 sqM); Sodium 136 mmol/L (137-145); Total Bilirubin 0.6 mg/dL (0.2-1.3); Total Protein 5.3 g/dL (6.3-8.2)
[2024-04-25] MEDS: MAGNESIUM SULFATE-D5W PMX 1 GM in DEXTROSE/WATER 1 100ML.BAG IVPB ONE (06:14)
[2024-04-25] MEDS: MIDODRINE 5 MG TAB PO SCH (09:24)
--- NOTE | 2024-04-25 09:30 | PN ---
PROGRESS NOTE DATE OF SERVICE: 04/24/2024 SUBJECTIVE: This 73-year-old woman was admitted after carotid artery revascularization. She is being closely monitored. The patient still has some related hypotension. PAST MEDICAL HISTORY: Reviewed. REVIEW OF SYSTEMS: Fourteen-point review of systems negative except as mentioned earlier. CURRENT MEDICATIONS: Reviewed. PHYSICAL EXAMINATION: VITAL SIGNS: Pulse is 56, blood pressure n, respirations 18. CHEST: Clear to auscultation. ABDOMEN: Soft. NERVOUS SYSTEM: Nonfocal. LABORATORY DATA: Hemoglobin is 8. Potassium is 3.2. Rest of the labs noted. ASSESSMENT: 1. Status post right transcarotid arterial revascularization for high-grade carotid stenosis. 2. Anemia. 3. Chronic obstructive pulmonary disease. 4. Gastroesophageal reflux disease. 5. Hyperlipidemia. 6. Hypertension. 7. Rheumatoid arthritis. RECOMMENDATIONS: Recommend to continue current medications. Continue with pressor support. Monitor the blood pressure closely. Repeat labs. If the hemoglobin falls again, I would recommend 1 unit of transfusion. Otherwise, we will continue to monitor. Follow closely with monitor in the ICU. MMODL / IJN: [id number] / MTDD
--- NOTE | 2024-04-25 10:58 | P.PN ---
Subjective Progress Note Date: 04/25/24 Principal diagnosis: ICU management. Pulmonary consult dated April 23, 2024. 73-year-old female postop day #0, status post right sided trans carotid arterial revascularization (TCAR). The patient is seen in the intensive care unit, room #2 64. She is on room air. She is getting Luis Carlos-Synephrine at 2 mcg/kg/min. She is also getting saline at [address] Oneill would like a blood pressure to be right around 140 mmHg systolic, and for that reason, we will add some vasopressin at 0.03 units/min. They did have some issues with lower blood pressures, in the operating room. The patient has a history of COPD, GERD, hyperlipidemia, hypertension, and rheumatoid arthritis. The procedure is being done for high-grade right-sided carotid artery stenosis. Current labs are good a white count 4.2, hemoglobin 10.6, macro 32.1, platelet count 262,000. Sodium 141, potassium 3.6, chlorides 114, CO2 18, BUN 14, creatinine 0.93. Glucose is 132. Calcium is 9. Chest x-ray is unremarkable. Progress note dated April 24, 2024. 73-year-old female who is postoperative day #1, status post right transcarotid arterial revascularization procedure. The patient remains on room air. The patient is getting saline at 100 cc an hour. In addition, to maintain a blood pressure, that is adequate according to vascular surgery, the patient is on vasopressin at 0.04 units/min, and Luis Carlos-Synephrine at 0.2 mcg/kg/min. The arterial line is nonfunctioning, and can be discontinued. Current labs include a white count of 4.8, hemoglobin 8, hematocrit 25.1, and a platelet count of 205,000. Sodium 135, potassium 3.2, chlorides 116, CO2 15, BUN 8, and creatinine 0.67. Glucose is 112. Calcium is 7.8. Progress note dated April 25, 2024. 73-year-old female postop day #2, status post right sided TCAR, for carotid artery stenosis. The patient's blood pressure is being maintained between 120 and 140 systolic, and currently, she remains on Luis Carlos-Synephrine at 0.3 mcg/kg/min . We have been able to wean the vasopressin off. We will add some midodrine at 5 mg 3 times a day, to see if we can control the blood pressure a bit better. She is on room air. She is getting saline at 75 cc an hour. Current labs include a white count 4.5, hemoglobin 8.6, hematocrit 26.4, and platelet count 178,000. Sodium 136, potassium 4, chlorides 115, CO2 15, BUN 5, creatinine 0.64. Albumin is 2.9. Objective - Vital Signs Vital signs: Vital Signs Temp 98.1 F 04/25/24 08:00 Pulse 72 04/25/24 10:00 Resp 18 04/25/24 10:00 BP 132/66 04/25/24 10:00 Pulse Ox 98 04/25/24 08:00 FiO2 Intake & Output 04/24/24 04/25/24 04/25/24 18:59 06:59 18:59 Intake Total 8880.599 8875.130 545.046 Output Total 400 1750 1000 Balance 1230.354 -714.870 -454.954 Weight 74.8 kg Intake: IV 700 825 300 Sodium Chloride 0.9% 1, 700 000 ml @ 100 mls/hr IV . Q10H ANYI Rx#:[id number] Sodium Chloride 0.9% 1, 825 300 000 ml @ 75 mls/hr IV . [id number] ANYI Rx#:[id number] Intake, IV Titration 690.354 210.130 5.046 Amount 0.9% NaCl with KCl 40 Meq 500 100 /l 1,000 ml @ 100 mls/hr IV .Q10H ANYI Rx#: [id number] Phenylephrine 40 mg In 42.060 Sodium Chloride 0.9% 250 ml @ 0.5 MCG/KG/MIN 12. 668 mls/hr IV .Q20H4M ONE Rx#:[id number] Phenylephrine 40 mg In 46.294 55.228 5.046 Sodium Chloride 0.9% 250 ml @ 0.5 MCG/KG/MIN 13. 887 mls/hr IV .[id number] ANYI Rx#:[id number] Vasopressin 20 unit In 102.00 54.902 Sodium Chloride 0.9% 50 ml @ 0.03 UNITS/MIN 4.59 mls/hr IV .Q11H7M ANYI Rx# :[id number] Oral 240 240 Output: Urine 400 1750 1000 Other: # Voids 1 ABP, PAP, CO, CI - Last Documented Arterial Blood Pressure 88/88 - Exam No acute distress, oriented 3. Currently on room air. HEENT examination is grossly unremarkable. Mucous membranes are moist. No oral lesions. Neck supple. Full range of motion. No adenopathy thyromegaly or neck vein distention. Cardiovascular examination reveals regular rhythm rate. S1-S2 normal. No S3 or S4. No discernible murmur noted. Lungs reveal clear breath sounds. Breath sounds are equal bilaterally. No adventitious lung sounds including wheezes rhonchi or crackles. Abdomen soft bowel sounds are heard. No masses or tenderness. Extremities are intact. No cyanosis clubbing or edema. Skin is without rash or lesion. Neurologic examination is brief but nonfocal. - Labs CBC & Chem 7: 04/25/24 05:21 04/25/24 05:21 Labs: Abnormal Lab Results - Last 24 Hours (Table) 04/25/24 04/25/24 Range/Units 05:21 05:21 RBC 2.62 L (3.80-5.40) m/uL Hgb 8.6 L (11.4-16.0) gm/dL Hct 26.4 L (34.0-46.0) % MCV 100.9 H (80.0-100.0) fL RDW 17.1 H (11.5-15.5) % Sodium 136 L (137-145) mmol/L Chloride 115 H (98-107) mmol/L Carbon Dioxide 15 L (22-30) mmol/L BUN 5 L (7-17) mg/dL Total Protein 5.3 L (6.3-8.2) g/dL Albumin 2.9 L (3.5-5.0) g/dL Assessment and Plan Assessment: Postop day #2, S/P right transcarotid artery revascularization (TCAR) for high- grade right carotid artery stenosis. Routine ICU management, for blood pressure support. History of COPD. History of gastroesophageal reflux disease. History of hyperlipidemia. History of hypertension. History of rheumatoid arthritis. Plan: Plan dated April 23, 2024. The patient's target blood pressure is 140 mmHg systolic. Currently, the patient is on Luis Carlos-Synephrine at 2 mcg/kg/min, but blood pressures in the 120 range. The patient is also getting saline at 100 cc an hour. The patient is on room air. We will start vasopressin at 0.03 units/min. Additional recommendations and suggestions are forthcoming. We will continue to follow. Prognosis is guarded. We did speak to Dr. Oneill about this patient. Plan dated April 24, 2024. The patient's target blood pressure systolic is 140 mmHg. That is currently being achieved using vasopressin at 0.04 units/min, Luis Carlos-Synephrine at 0.2 mcg/kg/min. The arterial line is nonfunctioning, and I have asked the nurse to remove it. The patient is on room air. All labs, x-rays, and medications are reviewed. We will continue to follow the patient, make recommendations. At this time, the patient needs to stay in the intensive care unit. Plan dated April 25, 2024. The patient's blood pressure still running low. Yesterday she was both on vasopressin and Luis Carlos-Synephrine. We may able to wean the vasopressin off. In addition, for short period of time, the Luis Carlos-Synephrine was also discontinued but currently, the Luis Carlos-Synephrine is currently running. Labs, x-rays, and medications are reviewed. Prognosis remains guarded. Vascular surgery would like the blood pressure to be 1 20-1 40 systolic. We add midodrine 5 mg 3 times a day. Additional recommendations and suggestions are forthcoming. Pulmonary status is stable. Time with Patient: Greater than 30
--- NOTE | 2024-04-25 12:41 | P.PN ---
Subjective Progress Note Date: 04/25/24 Postop day #2, status post TCAR right sided. Objective - Vital Signs Vital signs: Vital Signs Temp 98.1 F 04/25/24 12:00 Pulse 65 04/25/24 12:00 Resp 20 04/25/24 12:00 BP 129/75 04/25/24 12:00 Pulse Ox 99 04/25/24 12:00 FiO2 Intake & Output 04/24/24 04/25/24 04/25/24 18:59 06:59 18:59 Intake Total 3316.841 4916.130 721.712 Output Total 400 1750 1800 Balance 1230.354 -714.870 -1078.288 Weight 74.8 kg Intake: IV 700 825 450 Sodium Chloride 0.9% 1, 700 000 ml @ 100 mls/hr IV . Q10H ANYI Rx#:[id number] Sodium Chloride 0.9% 1, 825 450 000 ml @ 75 mls/hr IV . [id number] ANYI Rx#:[id number] Intake, IV Titration 690.354 210.130 31.712 Amount 0.9% NaCl with KCl 40 Meq 500 100 /l 1,000 ml @ 100 mls/hr IV .Q10H ANYI Rx#: [id number] Phenylephrine 40 mg In 42.060 Sodium Chloride 0.9% 250 ml @ 0.5 MCG/KG/MIN 12. 668 mls/hr IV .Q20H4M ONE Rx#:[id number] Phenylephrine 40 mg In 46.294 55.228 31.712 Sodium Chloride 0.9% 250 ml @ 0.5 MCG/KG/MIN 13. 887 mls/hr IV .[id number] ANYI Rx#:[id number] Vasopressin 20 unit In 102.00 54.902 Sodium Chloride 0.9% 50 ml @ 0.03 UNITS/MIN 4.59 mls/hr IV .Q11H7M ANYI Rx# :[id number] Oral 240 240 Output: Urine 400 1750 1800 Other: # Voids 1 ABP, PAP, CO, CI - Last Documented Arterial Blood Pressure 88/88 - Exam Patient is awake and alert. Neurologically she remains intact. Unfortunately the patient continues to need vasopressor support for her blood pressure. I have asked the patient to become more ambulatory in an effort to help raise her blood pressure. Once she is off pressors we can proceed with plans for discharge. - Labs CBC & Chem 7: 04/25/24 05:21 04/25/24 05:21 Labs: Abnormal Lab Results - Last 24 Hours (Table) 04/25/24 04/25/24 Range/Units 05:21 05:21 RBC 2.62 L (3.80-5.40) m/uL Hgb 8.6 L (11.4-16.0) gm/dL Hct 26.4 L (34.0-46.0) % MCV 100.9 H (80.0-100.0) fL RDW 17.1 H (11.5-15.5) % Sodium 136 L (137-145) mmol/L Chloride 115 H (98-107) mmol/L Carbon Dioxide 15 L (22-30) mmol/L BUN 5 L (7-17) mg/dL Total Protein 5.3 L (6.3-8.2) g/dL Albumin 2.9 L (3.5-5.0) g/dL Assessment and Plan Assessment: 1: Status post right internal carotid artery balloon and stenting via the TCAR approach. 2: Continued need for vasopressor support. Plan: Once vasopressors are no longer needed we will plan for appropriate discharge. Time with Patient: Less than 30
[2024-04-25] MEDS ORDERED: ALBUTEROL NEBULIZED 2.5 MG/3 ML INHALATION PRN (19:36)
[2024-04-25 23:53] VITALS: TEMP 98.1
--- NOTE | 2024-04-26 05:42 | PN ---
PROGRESS NOTE DATE OF SERVICE: 04/25/2024 SUBJECTIVE: This 73-year-old woman, who was admitted after carotid surgery for carotid stenosis, being closely monitored. The patient's hemoglobin is 8.6. No chest pain. No palpitation. The patient is still on pressor support. OBJECTIVE: VITAL SIGNS: Pulse is 58, blood pressure 130/62, respirations 20. CHEST: Clear. CARDIOVASCULAR: S1 and S2. ABDOMEN: Soft. LABORATORY DATA: Sodium 130, CO2 is 15. ASSESSMENT: 1. Status post right transcarotid arterial revascularization of high-grade carotid stenosis. 2. Anemia. 3. Chronic obstructive pulmonary disease. 4. Gastroesophageal reflux disease. 5. Hyperlipidemia. 6. Hypertension. 7. History of rheumatoid arthritis. RECOMMENDATIONS AND DISCUSSION: I recommend to continue current management and continue symptomatic treatment. Repeat labs. Otherwise, monitor blood pressure closely. Closely follow with multiple consultants. The patient is on Luis Carlos-Synephrine and vasopressin. Further recommendations to follow. MMODL / IJN: [id number] /
[2024-04-26 05:47] LABS: Anisocytosis Slight; Basophils % (A) 1 %; Eosinophils # (A) 0.2 k/uL (0-0.7); Eosinophils % (A) 5 %; HGB 8.6 gm/dL (11.4-16.0); Hypochromasia Slight; Lymphocytes % (A) 24 %; MCH 32.5 pg (25.0-35.0); MCHC 31.9 g/dL (31.0-37.0); Macrocytosis Moderate; Mean Platelet Volume 8.1; Monocytes # (A) 0.3 k/uL (0-1.0); Monocytes % (A) 8 %; Neutrophils # (A) 2.3 k/uL (1.3-7.7); Neutrophils % (A) 58 %; Platelet Count 225 k/uL (150-450); RBC 2.64 m/uL (3.80-5.40); RDW 17.5 % (11.5-15.5)
[2024-04-26 05:59] LABS: ALT 24 U/L (4-34); AST 22 U/L (14-36); African American GFR (CKD) >90 (>60 ml/min/1.73 sqM); Albumin 2.5 g/dL (3.5-5.0); Alkaline Phosphatase 117 U/L (38-126); Anion Gap 6 mmol/L; Blood Urea Nitrogen 6 mg/dL (7-17); Calcium 8.1 mg/dL (8.4-10.2); Carbon Dioxide 15 mmol/L (22-30); Chloride 119 mmol/L (98-107); Glucose 88 mg/dL (74-99); Non-African American GFR(CKD) 88 (>60 ml/min/1.73 sqM); Potassium 3.4 mmol/L (3.5-5.1); Sodium 140 mmol/L (137-145); Total Bilirubin 0.7 mg/dL (0.2-1.3); Total Protein 4.8 g/dL (6.3-8.2)
[2024-04-26] MEDS: POTASSIUM CHLORIDE ER 20 MEQ TAB.ER PO SCH (06:20)
[2024-04-26 08:33] VITALS: BP 97/59; PULSE 90; RESP 22
--- NOTE | 2024-04-26 11:09 | P.DS ---
Providers Date of admission: 04/23/24 05:52 Expected date of discharge: 04/26/24 Attending physician: Rebecca Oneill DO Consults: 04/23/24 09:22 Consult Physician Routine Consulting Provider: Idris Zimmerman Consult Reason/Comments: post op carotid stent Do you want consulting provider notified?: Yes 04/23/24 12:06 Consult Physician Urgent Consulting Provider: Jason Brown Consult Reason/Comments: icu management Do you want consulting provider notified?: Already Contacted 04/23/24 13:30 Consult Physician Routine Consulting Provider: Kojo Juarez Consult Reason/Comments: medical Do you want consulting provider notified?: Yes Primary care physician: Idris Zimmerman [place] [facility] Course: 73-year-old female previous right neck surgery who is being followed for asympto matic right high-grade carotid stenosis presented for right transcarotid artery revascularization with stenting on 04/23/2024. She is postop day #3 and is being seen and evaluated in the ICU. Patient had postoperative hypotension which can be expected with carotid surgery. She had been on Luis Carlos-Synephrine as well as some vasopressin. Vasopressin was discontinued, patient was started on Sudafed 60 mg every 6 hours and midodrine 5 mg 3 times daily. Center for and was discontinued through the night and apparently this morning patient went to get up and she had some orthostatic hypotension and blood pressures dropped to the 100s. She was asymptomatic denied any dizziness, shortness of breath or chest pain. Luis Carlos-Synephrine was started for short period And discontinued. Patient's baseline systolic blood pressures are 100s. WBC 4.0 hemoglobin 8.6 platelet count 225,000 sodium 140 potassium 3.4 BUN 6 creatinine 0.68 glucose 88 magnesium 2.0. Patient has been up and ambulating, she is voiding without difficulty, she is eating well without any difficulty swallowing. She denies any pain in her neck. She does have rheumatoid arthritis so does get some chronic joint pain. She denies any focal deficits. Again no dizziness, visual disturbances, shortness of breath, chest pain or nausea and vomiting. Exam General appearance: The patient is alert, oriented, appears in no acute distr ess. HET: Head is normocephalic and atraumatic. Pupils are equal and reactive. Neck: Supple. Right side of neck with dressing clean dry and intact, surgical incision well-approximated, minimal surrounding swelling without any evidence of hematoma, mild ecchymosis. Heart: Regular. Lungs: Equal expansion, normal respiratory effort. Abdomen: Soft, nontender, nondistended. Extremities: Normal skin color and turgor. Neurological: No focal deficits. Strength and sensation are grossly intact. Assessment 1. Status post right transcarotid artery revascularization with stenting 2. Postoperative hypotension requiring pressor support, can be expected with carotid surgery 3. Asymptomatic right high-grade carotid stenosis 4. Hypokalemia, treated 5. Hypomagnesemia, resolved Plan Pressor support discontinued. Discussed with patient continue midodrine 5 mg 3 times daily and pseudoephedrine 60 mg every 6 hours until seen by patient's PCP Dr. Zimmerman on Friday. Patient to have repeat potassium drawn tomorrow. Discharge instructions reviewed with patient. She is to hold her home blood pressure medications until further seen by her PCP. Encouraged acetaminophen instead of ibuprofen for pain management as needed. Continue Lipitor 40 mg daily, aspirin 81 mg and Plavix 75 mg daily. Plan for discharge today. Follow- up with Dr. Oneill as scheduled. The impression and plan of care has been dictated as directed. Dr. Oneill I performed a history and examination of this patient, discussed the same with the dictator. I agree with the dictator's note ,documented as a scribe. Any a dditional findings or plans will be noted. Procedures: Right transcarotid artery revascularization with stenting Right common femoral vein central venous catheter placement under ultrasound guidance Surgeon: Rebecca Oneill DO Patient Condition at Discharge: Stable Plan - Discharge Summary Discharge Rx Participant: No New Discharge Prescriptions: New Pseudoephedrine [Sudafed] 60 mg PO Q6HR #0 tab Midodrine [ProAmatine] 5 mg PO AC-TID 30 Days #90 tab Continue Zolpidem [Ambien] 10 mg PO HS Albuterol Sulfate [Proair Hfa] 1 - 2 puff INHALATION Q6HR PRN PRN Reason: Bronchospasm metHOTREXate sodium [Methotrexate] 25 mg PO FR Ibuprofen [Motrin] 800 mg PO Q8H PRN PRN Reason: Pain Folic Acid 1 mg PO DAILY Clopidogrel [Plavix] 75 mg PO DAILY Atorvastatin [Lipitor] 40 mg PO HS Unk Vitamin D3 1 tab PO DAILY Aspirin EC [Ecotrin Low Dose] 81 mg PO DAILY DULoxetine HCL [Cymbalta] 30 mg PO BID Discontinued amLODIPine [Norvasc] 5 mg PO DAILY Irbesartan 300 mg PO DAILY Discharge Medication List Zolpidem [Ambien] 10 mg PO HS 06/08/16 [History] Albuterol Sulfate [Proair Hfa] 1 - 2 puff INHALATION Q6HR PRN 01/05/18 [History] Folic Acid 1 mg PO DAILY 02/01/20 [History] Ibuprofen [Motrin] 800 mg PO Q8H PRN 02/01/20 [History] metHOTREXate sodium [Methotrexate] 25 mg PO FR 02/01/20 [History] Aspirin EC [Ecotrin Low Dose] 81 mg PO DAILY 04/21/24 [History] Atorvastatin [Lipitor] 40 mg PO HS 04/21/24 [History] Clopidogrel [Plavix] 75 mg PO DAILY 04/21/24 [History] DULoxetine HCL [Cymbalta] 30 mg PO BID 04/21/24 [History] Unk Vitamin D3 1 tab PO DAILY 04/21/24 [History] Midodrine [ProAmatine] 5 mg PO AC-TID 30 Days #90 tab 04/26/24 [Rx] Pseudoephedrine [Sudafed] 60 mg PO Q6HR #0 tab 04/26/24 [Rx] Follow up Appointment(s)/Referral(s): Rebecca Oneill DO [STAFF PHYSICIAN] - 05/05/24 10:45 am (FOLLOW UP APPOINTMENT MADE. ) Idris Zimmerman [Primary Care Provider] - 04/28/24 12:00 pm Ambulatory/Diagnostic Orders: Basic Metabolic Panel [LAB.AMB] Time Frame: 1 Day, Location: None Selected Patient Instructions/Handouts: Safe Use of Anticoagulants (DC), Mechanical Thrombectomy (DC) Activity/Diet/Wound Care/Special Instructions: No strenuous activity or heavy lifting greater than 10 pounds. May shower but no tub bathing or soaking. Watch incision site for infection including redness, drainage, or temperature greater than 100.4. If you notice he symptoms please call office Please get blood draw in the next 1 to 2 days and have that faxed to Dr. Zimmerman Hold home blood pressure meds until follow-up and further instructions from your primary care physician Dr. Zimmerman Continue midodrine 5 mg 3 times a day and Serm-pos-ujekkhr Sudafed 60 mg every 6 hours until your follow-up with Dr. Zimmerman in his further recommendations Discharge Disposition: HOME SELF-CARE
== END 2024-04-26 09:40 | disposition home or self-care (01) | DRG 36 ==
LOC: 2ORMAIN 05:52 → 2SICU 10:04
PROVIDERS: ADMIT Surgery; ATTEND Surgery
PROC: B3161ZZ Fluoroscopy of Right Internal Carotid Artery using Low Osmolar Contrast (ICD-10-PCS; principal; 2024-04-23 07:30)
PROC: 3E033XZ Introduction of Vasopressor into Peripheral Vein, Percutaneous Approach (ICD-10-PCS; principal; 2024-04-23 07:30)
PROC: 037K3DZ Dilation of Right Internal Carotid Artery with Intraluminal Device, Percutaneous Approach (ICD-10-PCS; principal; 2024-04-23 07:30)
PROC: X2AJ336 Cerebral Embolic Filtration, Extracorporeal Flow Reversal Circuit from Left Common Carotid Artery, Percutaneous Approach, New Technology Group 6 (ICD-10-PCS; principal; 2024-04-23 07:30)
PROC: 06HY33Z Insertion of Infusion Device into Lower Vein, Percutaneous Approach (ICD-10-PCS; principal; 2024-04-23 07:30)
DX: I65.21 Occlusion and stenosis of right carotid artery (principal); Z00.6 Encounter for examination for normal comparison and control in clinical research program; E87.6 Hypokalemia; D64.9 Anemia, unspecified; I10 Essential (primary) hypertension; J44.9 Chronic obstructive pulmonary disease, unspecified; M06.9 Rheumatoid arthritis, unspecified; I65.29 Occlusion and stenosis of unspecified carotid artery; E78.5 Hyperlipidemia, unspecified; F17.200 Nicotine dependence, unspecified, uncomplicated; G89.29 Other chronic pain; I95.1 Orthostatic hypotension; I95.81 Postprocedural hypotension; K21.9 Gastro-esophageal reflux disease without esophagitis; Z79.02 Long term (current) use of antithrombotics/antiplatelets; Z79.82 Long term (current) use of aspirin; Z79.899 Other long term (current) drug therapy; E83.42 Hypomagnesemia; Z82.49 Family history of ischemic heart disease and other diseases of the circulatory system
CPT/HCPCS: 37215; 71045; 80048; 80053; 83735; 84132; 85025; 94640

== ENCOUNTER → 2024-06-08 | Outpatient (CLI) | payer MEDICARE ==
[2024-06-08 11:05] LABS: African American GFR (CKD) >90 (>60 ml/min/1.73 sqM); Blood Urea Nitrogen 16 mg/dL (7-17); Non-African American GFR(CKD) 87 (>60 ml/min/1.73 sqM)
--- NOTE | 2024-06-08 12:12 | CT ---
EXAMINATION TYPE: CT angio neck DATE OF EXAM: 06/08/2024 11:57 AM COMPARISON: 06/19/2023 CLINICAL INDICATION: Female, 73 years old with history of I65.29 OCCLUSION AND STENOSIS OF UNSPECIFIE D CAROT; TECHNIQUE: Axially acquired helical CT Angiogram of the Neck was obtained with and without contrast. Axial images are supplemented with coronal and sagittal MIP reconstructions. 3D reconstructions were also performed and were post-processed at an independent workstation. Estimated carotid stenosis was calculated using the NASCET criteria. Contrast used:65 mL of Isovue 370 with IV Contrast, Oral contrast used: , None. CT DLP: 329 mGycm, Automated exposure control for dose reduction was used. FINDINGS: CTA NECK: Right Carotid System: The common carotid artery is patent. The carotid bifurcation demonstrates stent graft which is new fr om prior imaging. There is a flattened morphology to the internal carotid component. No evidence for occlusion. Series 6 image 119. Internal carotid arteries patent. Left Carotid System: The common carotid and external carotid arteries are patent. There is approximately 53 % stenosis at the carotid bifurcation secondary to calcified plaquing. The rest of the internal carotid artery is p atent. Vertebral arteries are patent without evidence hemodynamically significant stenosis. Dominant right d iminutive vertebral artery system. There is a three-vessel aortic arch. The origins of the great vessels are patent. No evidence of hemo dynamically significant stenosis. IMPRESSION: 1. No evidence of dissection of the cervical internal carotid arteries or vertebral arteries. 2. Calcified plaque at the left carotid bifurcation without to 52% stenosis similar to prior. 3. New from prior right carotid bifurcation stent grafts with a slightly flattened morphology of the internal carotid artery portion. 4. Dominant right vertebral artery system with diminutive left. [facility], , 06/08/2024 12:10 PM
== END | disposition home or self-care (01) ==
LOC: RADCTMAIN 10:33
PROVIDERS: ATTEND Surgery
DX: I65.23 Occlusion and stenosis of bilateral carotid arteries (principal)
CPT/HCPCS: 82565; 84520; 70498; 36415; Q9967